=== PATIENT | male | born 1965 | race Caucasian/White ===

== ENCOUNTER 2016-09-26 19:45 | Observation (INO) | payer BC ==
[2016-09-26] MEDS ORDERED: SODIUM CHLORIDE 0.9% 500 ML IV STA (20:10)
[2016-09-26] MEDS ORDERED: SODIUM CHLORIDE 0.9% 1,000 ML IV STA (20:10)
[2016-09-26] MEDS ORDERED: IPRATROPIUM-ALBUTEROL 3 ML NEB INHALATION STA (20:11)
--- NOTE | 2016-09-26 20:14 | ED ---
General Adult HPI - General Source: patient Mode of arrival: wheelchair Limitations: no limitations <Arnie Sanchez - Last Filed: 09/26/16 20:18> <Castillo Palacios - Last Filed: 09/26/16 23:52> - General Chief complaint: Chest Pain Stated complaint: SOB/Chest tightness Time Seen by Provider: 09/26/16 20:10 - History of Present Illness Initial comments: This is a 51-year-old [id number] chest pain chest that is here patient has history of high blood pressure and asthma, patient coming in with chest pain, sent from urgent care for evaluation. Patient is exhibiting mainly chest tightness cough and congestion. Patient states he had no recent fever no sick contacts a no travel history, no modifying factors of pain (Arnie Sanchez ) - Related Data Home Medications Medication Instructions Recorded Confirmed Budesonide/Formoterol Fumarate 2 puff INHALATION RT-BID 11/19/14 09/26/16 [Symbicort 160-4.5 Mcg Inhaler] Lisinopril [Zestril] 10 mg PO DAILY 11/19/14 09/26/16 Omeprazole [PriLOSEC] 20 mg PO DAILY 11/19/14 09/26/16 Albuterol Nebulized [Ventolin 2.5 mg INHALATION RT-HS 05/05/16 09/26/16 Nebulized] Levothyroxine Sodium [Synthroid] 125 mcg PO DAILY 05/05/16 09/26/16 Cetirizine HCl [Zyrtec] 10 mg PO DAILY PRN 09/26/16 09/26/16 amLODIPine [Norvasc] 5 mg PO DAILY 09/26/16 09/26/16 guaiFENesin-DM 100-10MG/5ML 10 ml PO Q6H PRN 09/26/16 09/26/16 [Robitussin DM] Allergies Allergy/AdvReac Type Severity Reaction Status Date / Time No Known Allergies Allergy Verified 09/26/16 20:01 Review of Systems ROS Other: All systems not noted in ROS Statement are negative. <Arnie Sanchez - Last Filed: 09/26/16 20:18> ROS Other: All systems not noted in ROS Statement are negative. <Castillo Palacios - Last Filed: 01/29/17 23:52> ROS Statement: Those systems with pertinent positive or pertinent negative responses have been documented in the HPI. Past Medical History Past Medical History: Asthma, Hypertension Additional Past Medical History / Comment(s): HERNIA History of Any Multi-Drug Resistant Organisms: None Reported Past Surgical History: Hernia Repair Additional Past Surgical History / Comment(s): large intestine, secondary to juvenile polyposis Past Psychological History: No Psychological Hx Reported Smoking Status: Never smoker Past Alcohol Use History: None Reported Past Drug Use History: None Reported - Past Family History Mother Family Medical History: Cancer Sister(s) Additional Family Medical History / Comment(s): juvenile polyposis <Arnie Sanchez - Last Filed: 09/26/16 20:18> General Exam Limitations: no limitations General appearance: alert, in no apparent distress Head exam: Present: atraumatic, normocephalic, normal inspection Eye exam: Present: normal appearance, PERRL, EOMI. Absent: scleral icterus, conjunctival injection, periorbital swelling ENT exam: Present: normal exam, mucous membranes moist Neck exam: Present: normal inspection. Absent: tenderness, meningismus, lymphadenopathy Respiratory exam: Present: normal lung sounds bilaterally, respiratory distress , wheezes, decreased breath sounds. Absent: rales, rhonchi, stridor Cardiovascular Exam: Present: normal rhythm, tachycardia, normal heart sounds. Absent: systolic murmur, diastolic murmur, rubs, gallop, clicks GI/Abdominal exam: Present: soft, normal bowel sounds. Absent: distended, tenderness, guarding, rebound, rigid Extremities exam: Present: normal inspection, full ROM, normal capillary refill. Absent: tenderness, pedal edema, joint swelling, calf tenderness Back exam: Present: normal inspection Neurological exam: Present: alert, oriented X3, CN II-XII intact Psychiatric exam: Present: normal affect, normal mood Skin exam: Present: warm, dry, intact, normal color. Absent: rash <Arnie Sanchez Last Filed: 09/26/16 20:18> EKG Findings - EKG Comments: EKG Findings:: EKG shows sinus tachycardia rate of 109, OR 144, QRS 92, QTC 433 <Arnie Sanchez Last Filed: 09/26/16 20:18> Medical Decision Making <Arnie Sanchez - Last Filed: 09/26/16 20:18> - Lab Data Result diagrams: 09/26/16 20:30 09/26/16 20:30 - Radiology Data Radiology results: report reviewed, image reviewed (I did review the imaging and reports no acute findings are seen.) <Castillo Palacios - Last Filed: 09/26/16 23:52> - Medical Decision Making Patient will be admitted I did discuss findings with him and his family. He still has some intermittent episodes of some chest discomfort. (Castillo Palacios) - Lab Data Lab Results 09/26/16 09/26/16 09/26/16 Range/Units 20:30 20:30 20:30 WBC 5.7 (3.8-10.6) k/uL RBC 4.36 (4.30-5.90) m/uL Hgb 11.5 L (13.0-17.5) gm/dL Hct 37.6 L (39.0-53.0) % MCV 86.1 (80.0-100.0) fL MCH 26.4 (25.0-35.0) pg MCHC 30.7 L (31.0-37.0) g/dL RDW 19.1 H (11.5-15.5) % Plt Count 277 (150-450) k/uL Neutrophils % (Manual) 51.0 % Band Neutrophils % 5.0 % Lymphocytes % (Manual) 31.0 % Monocytes % (Manual) 12.0 % Eosinophils % (Manual) 1.0 % Neutrophils # (Manual) 3.2 (1.3-7.7) k/uL Lymphocytes # (Manual) 1.8 (1.0-4.8) k/uL Monocytes # (Manual) 0.7 (0-1.0) k/uL Eosinophils # (Manual) 0.1 (0-0.7) k/uL Nucleated RBCs 0 (0-0) /100 WBC Manual Slide Review Performed Hypochromasia Marked Poikilocytosis Slight Anisocytosis Slight Microcytosis Slight PT (9.0-12.0) sec INR (<1.1) APTT (22.0-30.0) sec D-Dimer (<0.60) mg/L FEU Sodium 138 (137-145) mmol/L Potassium 4.6 (3.5-5.1) mmol/L Chloride 103 (98-107) mmol/L Carbon Dioxide 23 (22-30) mmol/L Anion Gap 12 mmol/L BUN 14 (9-20) mg/dL Creatinine 1.00 (0.66-1.25) mg/dL Est GFR (MDRD) Af Amer >60 (>60 ml/min/1.73 sqM) Est GFR (MDRD) Non-Af >60 (>60 ml/min/1.73 sqM) Glucose 112 H (74-99) mg/dL Calcium 8.8 (8.4-10.2) mg/dL Magnesium 1.9 (1.6-2.3) mg/dL Total Bilirubin 0.3 (0.2-1.3) mg/dL AST 23 (17-59) U/L ALT 37 (21-72) U/L Alkaline Phosphatase 88 (38-126) U/L Total Creatine Kinase 47 L (55-170) U/L CK-MB (CK-2) <0.2 (0.0-2.4) ng/mL CK-MB (CK-2) Rel Index Troponin I <0.012 (0.000-0.034) ng/mL NT-Pro-B Natriuret Pep pg/mL Total Protein 7.2 (6.3-8.2) g/dL Albumin 4.0 (3.5-5.0) g/dL 09/26/16 09/26/16 Range/Units 20:30 20:30 WBC (3.8-10.6) k/uL RBC (4.30-5.90) m/uL Hgb (13.0-17.5) gm/dL Hct (39.0-53.0) % MCV (80.0-100.0) fL MCH (25.0-35.0) pg MCHC (31.0-37.0) g/dL RDW (11.5-15.5) % Plt Count (150-450) k/uL Neutrophils % (Manual) % Band Neutrophils % % Lymphocytes % (Manual) % Monocytes % (Manual) % Eosinophils % (Manual) % Neutrophils # (Manual) (1.3-7.7) k/uL Lymphocytes # (Manual) (1.0-4.8) k/uL Monocytes # (Manual) (0-1.0) k/uL Eosinophils # (Manual) (0-0.7) k/uL Nucleated RBCs (0-0) /100 WBC Manual Slide Review Hypochromasia Poikilocytosis Anisocytosis Microcytosis PT 10.1 (9.0-12.0) sec INR 1.0 (<1.1) APTT 27.1 (22.0-30.0) sec D-Dimer 0.41 (<0.60) mg/L FEU Sodium (137-145) mmol/L Potassium (3.5-5.1) mmol/L Chloride (98-107) mmol/L Carbon Dioxide (22-30) mmol/L Anion Gap mmol/L BUN (9-20) mg/dL Creatinine (0.66-1.25) mg/dL Est GFR (MDRD) Af Amer (>60 ml/min/1.73 sqM) Est GFR (MDRD) Non-Af (>60 ml/min/1.73 sqM) Glucose (74-99) mg/dL Calcium (8.4-10.2) mg/dL Magnesium (1.6-2.3) mg/dL Total Bilirubin (0.2-1.3) mg/dL AST (17-59) U/L ALT (21-72) U/L Alkaline Phosphatase (38-126) U/L Total Creatine Kinase (55-170) U/L CK-MB (CK-2) (0.0-2.4) ng/mL CK-MB (CK-2) Rel Index Troponin I (0.000-0.034) ng/mL NT-Pro-B Natriuret Pep 36 pg/mL Total Protein (6.3-8.2) g/dL Albumin (3.5-5.0) g/dL Disposition <Arnie Sanchez - Last Filed: 09/26/16 20:18> <Castillo Palacios - Last Filed: 09/26/16 23:52> Clinical Impression: Unstable angina pectoris, Chest pain Disposition: HOME SELF-CARE Condition: Stable
--- NOTE | 2016-09-26 21:04 | XR ---
EXAMINATION TYPE: XR chest 2V DATE OF EXAM: 09/26/2016 9:00 PM COMPARISON: 11/19/2014 HISTORY: Difficulty breathing TECHNIQUE: Frontal and lateral views of the chest are obtained. FINDINGS: There is a large hiatal hernia. Heart size is normal. There is no heart failure. Lungs are clear of consolidation. There is slight increased interstitial markings. Her chest leads. There is n o pleural effusion. IMPRESSION: Large hiatal hernia. Mild pulmonary fibrotic changes. No acute lung disease. No change.
[2016-09-26 21:07] LABS: ALT 37 U/L (21-72); AST 23 U/L (17-59); Alkaline Phosphatase 88 U/L (38-126); Anion Gap 12 mmol/L; Blood Urea Nitrogen 14 mg/dL (9-20); Calcium 8.8 mg/dL (8.4-10.2); Carbon Dioxide 23 mmol/L (22-30); Chloride 103 mmol/L (98-107); Glucose 112 mg/dL (74-99); Magnesium 1.9 mg/dL (1.6-2.3); Non-African American GFR(MDRD) >60 (>60 ml/min/1.73 sqM); Potassium 4.6 mmol/L (3.5-5.1); Sodium 138 mmol/L (137-145); Total Bilirubin 0.3 mg/dL (0.2-1.3); Total Protein 7.2 g/dL (6.3-8.2)
[2016-09-26 21:11] LABS: Creatine Kinase 47 U/L (55-170); Partial Thromboplastin Time 27.1 sec (22.0-30.0); Prothrombin Time 10.1 sec (9.0-12.0)
[2016-09-26 21:17] LABS: Anisocytosis Slight; Aty Lym Flag Slight; CH 26.8; HCT 37.6 % (39.0-53.0); HDW 3.65; HGB 11.5 gm/dL (13.0-17.5); Hypochromasia Marked; MCH 26.4 pg (25.0-35.0); MCHC 30.7 g/dL (31.0-37.0); MCV 86.1 fL (80.0-100.0); Mean Platelet Volume 7.6; Microcytosis Slight; Poikilocytosis Slight; RBC 4.36 m/uL (4.30-5.90); RDW 19.1 % (11.5-15.5); WBC 5.7 k/uL (3.8-10.6); WBC (Perox) 5.76
[2016-09-26 21:24] LABS: Creatine Kinase MB <0.2 ng/mL (0.0-2.4); Troponin I <0.012 ng/mL (0.000-0.034)
[2016-09-26 22:03] LABS: Add Differential Manual Differential
[2016-09-26 22:05] LABS: Nucleated Red Blood Cells 0 /100 WBC (0-0); Total Cells Counted 100
[2016-09-26 22:06] LABS: Manual Review Performed
[2016-09-26] MEDS ORDERED: HEPARIN SODIUM,PORCINE/D5W PMX 25,000 UNIT in DEXTROSE/WATER 1 500ML.BAG IV SCH (23:45)
[2016-09-26] MEDS ORDERED: HEPARIN SODIUM,PORCINE 5,000 UNIT/ML 1 ML VIAL IV ONE (23:52)
[2016-09-26] MEDS ORDERED: NITROGLYCERIN SL TABS 0.4 MG TAB SUBLINGUAL PRN (23:52)
[2016-09-26] MEDS ORDERED: LORATADINE 10 MG TAB PO PRN (23:54)
[2016-09-27 01:34] VITALS: BMI 38.6
[2016-09-27 03:01] LABS: Creatine Kinase 42 U/L (55-170)
[2016-09-27 03:14] LABS: Creatine Kinase MB <0.2 ng/mL (0.0-2.4); Troponin I <0.012 ng/mL (0.000-0.034)
[2016-09-27] MEDS: NITROGLYCERIN OINT 1 INCH/GM PACKET TOPICAL SCH ×3 (04:00→13:58)
[2016-09-27] MEDS ORDERED: LEVOTHYROXINE 125 MCG TAB PO SCH (06:30)
[2016-09-27] MEDS ORDERED: PANTOPRAZOLE 40 MG TABLET PO SCH (07:30)
[2016-09-27 07:52] VITALS: RESP 18
[2016-09-27] MEDS ORDERED: SYMBICORT 160-4.5 MCG INHALER INHALATION SCH (08:00)
[2016-09-27] MEDS ORDERED: LISINOPRIL 10 MG TAB PO SCH (09:00)
[2016-09-27] MEDS ORDERED: ASPIRIN 325 MG TAB PO SCH (09:00)
[2016-09-27] MEDS ORDERED: amLODIPine 5 MG TAB PO SCH (09:00)
[2016-09-27 10:01] LABS: Cholesterol 101 mg/dL (<200); HDL Cholesterol 35 mg/dL (40-60); Triglycerides 67 mg/dL (<150)
[2016-09-27 10:06] LABS: Creatine Kinase 41 U/L (55-170)
[2016-09-27 10:19] LABS: Creatine Kinase MB 0.3 ng/mL (0.0-2.4); Troponin I <0.012 ng/mL (0.000-0.034)
--- NOTE | 2016-09-27 10:28 | CONS ---
DATE OF CONSULTATION: Mart Walters is a 51-year-old male patient who presented to the hospital with tightness in the chest for the last day or two. He has low-grade fever. He is coughing. He is bringing up brownish phlegm and he feels a tightness in his whole chest. His 12-lead ECG upon admission showed sinus tachycardia. There was no ST segment abnormal abnormality. The follow-up 12 lead ECG also shows sinus rhythm, normal AL, normal ST segments but with lead reversal. His cardiac enzymes x2 are normal and we are waiting for the third one. Lipid panel has also been sent and is pending. He denies any dizziness, lightheadedness, palpitations. He does not history of asthma and he may have an asthma attack off and on. This does not feel like his asthma. He feels like he has got bronchitis. Past history of Juvenile polyposis with severe anemia in the past, history of colon surgery in [facility] 7 to 8 years back. Past history of hypertension. Past history of anemia in April 2016. ALLERGIES: No known drug allergies. MEDICATIONS: Home medications reviewed and include: 1. Amlodipine. 2. Lisinopril. 3. Naprosyn. 4. Ferrous Sulfate. 5. Synthroid. 6. Budesonide. 7. Inhalers. Family history of juvenile polyposis syndrome, father and sister. Mother had cancer. He has had a hernia repair in the past, he has a ventral hernia, history of microcytic hypochromic anemia. REVIEW OF SYSTEMS: He does have a low grade fever. No fever. No chills. No rigors. He does have cough and expectoration with brownish phlegm. No nausea, vomiting diarrhea. No hematuria or dysuria. No strokes or seizures. No skin lesions or musculoskeletal complaints. On examination, he is sitting comfortably in bed. His blood pressure is well controlled 130/68 and 113/67 millimeters of Hg. He is afebrile at 98.3, pulse rate is in the 80s. Head and neck examination is normal. Heart sounds S1, S2 are normal. Breath sounds are normal. No rhonchi. No crackles. EXTREMITIES: Warm. No edema. He does ( ) central obesity. His BMI is 38.7. IMPRESSION: 1. A 51-year-old male patient presenting with atypical chest discomfort that lasted more than 24 hours. He described it as a tightness in the chest. Two sets of cardiac enzymes are normal. Waiting for the third one. 2. Lipid panel unknown. 3. Hypertension on appropriate medical treatment and blood pressure is well controlled. 4. Obesity with a BMI of 38.7. 5. History of asthma. 6. History of juvenile polyposis syndrome, status post colectomy. 7. History of severe anemia several months back. At that time he was seen by Dr. Lynch and ( ). PLAN: If the third set of cardiac enzymes is normal he can go home. Continue antihypertensive therapy, lipid panel and follow up with me in about 3 weeks. There is no evidence for acute myocardial infarction or myocardial injury. He seems to have bronchitis at this time.
[2016-09-27 11:17] LABS: Hemoglobin A1C 5.3 % (4.2-6.1)
[2016-09-27 11:41] VITALS: BP 126/71; PULSE 97; TEMP 98.1
--- NOTE | 2016-09-27 16:52 | HP ---
DATE OF ADMISSION: 09/26/2016 HISTORY AND PHYSICAL AND DISCHARGE SUMMARY: Chief complaint is chest tightness and difficulty in breathing. HISTORY OF PRESENT ILLNESS: Mr. Walters is a 51-year-old male with a past medical history of asthma and hypertension coming to the hospital with a chief complaint of difficulty in breathing. Patient states that he was out in the cold weather five days back for a few hours as his truck stopped in the middle of the road so he was expose to some cold weather and since then started to have chest tightness and difficulty in breathing. He has some cough but it is nonproductive. It is dry, hacking cough. The patient reports of having subjective fevers. He has been taking his inhalers but with only some relief. As his symptoms did not improve he came into the hospital for further evaluation. REVIEW OF SYSTEMS: CONSTITUTIONAL: Denies having any chills or rigors. Positive for fever. CARDIAC: No chest pain or palpitations. GI: No abdominal pain, nausea, vomiting, or diarrhea. : No dysuria or hematuria. All 13 review of systems are done and negative except for the ones mentioned in the HPI. Past medical history significant for asthma and hypertension. ALLERGIES: No known drug allergies. Patient's home medications: 1. Symbicort 160/4.5 mcg 2 puffs b.i.d. 2. Lisinopril 10 mg p.o. daily. 3. Omeprazole 20 mg p.o. daily. 4. Albuterol inhalation p.r.n. for shortness of breath. 5. Levothyroxine 110 mcg p.o. daily. 6. ( ) 10 mg p.o. daily. 7. Amlodipine 5 mg p.o. daily. 8. Robitussin DM 10 mg q.6 hours p.r.n. for difficulty in breathing. PAST SURGICAL HISTORY: Positive for colon resection for juvenile polyposis, hernia repair. SOCIAL HISTORY: Never a smoker. No history of alcohol abuse or intravenous drug abuse. FAMILY HISTORY: Positive for juvenile polyposis in his sister and cancer in his mother. On examination, patient's vital signs temperature 98.1, heart rate 97, respiratory rate 18, blood pressure 126/71, saturating at 93% on room air. GENERAL EXAMINATION: The patient is obese and appears to be in no acute distress. HEAD: Atraumatic, normocephalic. EYES: Pupils round and reactive to light. NECK: No JVD. No thyromegaly. CARDIOVASCULAR: S1, S2 heard. No additional sounds. LUNGS: Bilateral breath sounds are positive. No wheeze or crackles. GI: Abdomen is soft. The patient has a huge ventral hernia. Bowel sounds are positive. EXTREMITIES: No edema. No cyanosis, no clubbing. GLASS BULB SILVERER: Alert, awake, oriented x3. No focal neurological deficits. SKIN: No rash. Patient's labs: White count 5.7, hemoglobin is 11.5, platelets of 277. Sodium 135, potassium 4.6, chloride 103, bicarb 23, BUN 14, creatinine 1.0. Troponin less than 0.012 x 3. The patient had a chest x-ray showing no acute cardiopulmonary process. ASSESSMENT AND PLAN: 1. Shortness of breath secondary to acute asthma exacerbation due to recent exposure to cold and also acute tracheobronchitis. 2. Hypertension. 3. Morbid obesity. 4. History of juvenile polyposis status post colectomy. PLAN: The patient did get serial EKGs and serial troponins that were within normal limits, seen by cardiology and cleared for discharged. Advised to follow up with them in 3 weeks. Patient's symptoms did get better. He will be discharged on Z-angela, refill his Inhalers as he ran out of them. The patient is being discharged home in stable condition. Follow-up: The patient is advised to follow up with his PCP in 2 to 3 days and cardiology, Dr. Gudino within 3 weeks. Activity as tolerated. DIET: Heart healthy diet. Patient's discharge medications: 1. Albuterol inhaler q.6 hours p.r.n. for shortness of breath. 2. Symbicort 160/4.5 mcg 2 puffs b.i.d. 3. Zithromax 250/500 mg on day one and 250 mg for 4 days. 4. Amlodipine 5 mg p.o. daily. 5. ( )10 mg p.o. daily. 6. Levothyroxine 125 mcg p.o. daily. 7. Omeprazole 20 mg p.o. daily. 8. Lisinopril 10 mg p.o. daily.
[2016-09-27] MEDS ORDERED: ALBUTEROL NEBULIZED 2.5 MG/3 ML INHALATION SCH (20:00)
== END 2016-09-27 14:52 | disposition home or self-care (01) ==
LOC: EC 19:45 → 3OBS 23:55
PROVIDERS: ADMIT Internal Medicine; ATTEND Internal Medicine
DX: R07.89 Other chest pain (principal); J45.901 Unspecified asthma with (acute) exacerbation; I10 Essential (primary) hypertension; E66.01 Morbid (severe) obesity due to excess calories; Z68.38 Body mass index [BMI] 38.0-38.9, adult; Z79.899 Other long term (current) drug therapy; Z90.49 Acquired absence of other specified parts of digestive tract; Z79.890 Hormone replacement therapy; Z79.51 Long term (current) use of inhaled steroids
CPT/HCPCS: 36415; 94640 ×2; 85379; 83880; 80061; 80053; 83036; 82550 ×2; 82553 ×2; 83735; 84484 ×2; 85025; 85610; 85730 ×2; 71020; 99285; 96361; 96376; G0378 ×2; J1644 ×2; 93005; 96365; 96366

== ENCOUNTER 2017-03-08 09:43 | Day surgery (SDC) | payer BC ==
[2017-03-04 12:56] VITALS: BMI 38.0
[~2017-03-08 09:43] MED LIST: LACTATED RINGERS 1,000 ML IV SCH
[2017-03-08 11:32] VITALS: TEMP 97.1
[2017-03-08] MEDS ORDERED: LIDOCAINE 1% 20 ML VIAL (10MG/ML) FOR IV START INTRADERMA ONE (11:50)
[2017-03-08] MEDS ORDERED: PROPOFOL 10 MG/ML 20 ML VIAL IV ONE (11:53)
[2017-03-08] MEDS ORDERED: ePHEDrine 50 MG/ML 1 ML AMP ONE (11:53)
[2017-03-08 12:40] VITALS: RESP 18
[2017-03-08 13:12] VITALS: BP 105/54; PULSE 88
--- NOTE | 2017-03-08 15:11 | P.PCN ---
Date of Procedure: 03/08/17 Preoperative Diagnosis: Postoperative Diagnosis: Procedure(s) Performed: Procedure: 1. Esophagogastroduodenoscopy and biopsy. 2. Colonoscopy and biopsy. 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 Postoperative diagnosis: 1. Paraesophageal hiatal hernia with no obvious esophagitis or complicated reflux disease including any evidence of Duarte's esophagus at this time. 2. 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 3. S/P colon resection with a diminutive polyp close to the anastomosis with the small bowel,biopsied, but no polyps noted in the remainder of the colon. 4. Low-grade internal hemorrhoids with no bleeding. Preparation: HalfLytely prep. Sedation: Was provided by anesthesia. Brief clinical history: The patient is a 51-year-old male who I have recently evaluated in the office and scheduled this exam because of history of Duarte's esophagus and history of familial polyposis. The patient has been advised in the past to have repeat yearly examination of his colon. Procedure: With the patient on his left lateral decubitus position and after informed consent and adequate sedation, I passed the Olympus-GIF 160 video upper endoscope through the cricopharyngeus down the esophagus. The GE junction was around 36 cm from the incisors and there was a moderately sized paraesophageal hiatal hernia. The esophagus did not show any obvious erosions, ulcers, strictures or Duarte's esophagus which he apparently had in the past. The endoscope was then passed into the stomach which was insufflated with air and inspected in detail including the retroflex view in the cardia. There was some mottling and erythema and there were multiple polyps in the gastric body and few smaller polyps in the gastric antrum consistent with regenerative polyps. There was no ulcers or bleeding. Pyloric channel, duodenal bulb, post bulbar area and descending duodenum was essentially within normal limits. I obtained biopsies from the duodenum, antrum, esophagus and the gastric body and antral polyps then the endoscope was withdrawn and I proceeded with the colonoscopy. Perianal area did not show any fissures or fistulas. There were no masses felt on digital rectal examination. The Olympus CFQ 160L video colonoscope was then inserted in the rectum in the usual fashion and advanced to the anastomotic site with the small bowel which is around 50 cm from the anal verge. The small bowel was examined to a good distance. There was a diminutive polyp close to the anastomosis which I biopsied, otherwise, the colon did not show any polyps or any significant abnormalities. I retroflexed the endoscope in the rectum before the endoscope was withdrawn. Low-grade internal hemorrhoids were noted with no evidence of bleeding at the time of this exam. The patient tolerated the procedure well. Plan: The patient was reassured. Will continue to survey as per protocol. He will follow up with you as planned. Implants: Indications for Procedure: Operative Findings: Description of Procedure:
== END 2017-03-08 13:45 | disposition home or self-care (01) ==
LOC: ORWHC2ENDO 09:43
DX: K29.50 Unspecified chronic gastritis without bleeding (principal); K31.7 Polyp of stomach and duodenum; K21.0 Gastro-esophageal reflux disease with esophagitis; K63.5 Polyp of colon; K44.9 Diaphragmatic hernia without obstruction or gangrene; K64.8 Other hemorrhoids; Z90.49 Acquired absence of other specified parts of digestive tract; Z86.010 Personal history of colon polyps; Z87.19 Personal history of other diseases of the digestive system; I10 Essential (primary) hypertension; E07.9 Disorder of thyroid, unspecified; Z79.899 Other long term (current) drug therapy
CPT/HCPCS: 88305; 88342; 45380; 43239; J2704

== ENCOUNTER → 2017-11-08 | Day surgery (SDC) | payer BC ==
[2017-11-07 08:42] VITALS: BMI 40.2
[~2017-11-08] MED LIST changes: -LACTATED RINGERS 1,000 ML IV SCH; +SIMETHICONE 40 MG/0.6 ML DROPS 2,000 MG/30 ML BOTTLE PO ONE
== END ==
LOC: ORWHC2ENDO 06:51
DX: K29.70 Gastritis, unspecified, without bleeding (principal)
CPT/HCPCS: 91110

== ENCOUNTER 2019-01-02 15:41 | Observation (INO) | payer BC ==
[2019-01-02] MEDS ORDERED: SODIUM CHLORIDE 0.9% 500 ML 500 ML IV STA (15:54)
[2019-01-02] MEDS ORDERED: IPRATROPIUM 0.5 MG/2.5 ML NEBU INHALATION STA (15:54)
[2019-01-02] MEDS ORDERED: ALBUTEROL NEBULIZED 2.5 MG/3 ML INHALATION STA (15:54)
[2019-01-02] MEDS ORDERED: diphenhydrAMINE 50 MG/ML 1 ML VIAL IVP STA (15:55)
[2019-01-02] MEDS ORDERED: DEXAMETHASONE SOD PHOSPHATE 10 MG/ML 1 ML VIAL IV STA (15:55)
[2019-01-02] MEDS ORDERED: FAMOTIDINE 20 MG/2 ML VIAL IV STA (15:55)
--- NOTE | 2019-01-02 16:03 | ED ---
General Adult HPI - General Chief complaint: Shortness of Breath Stated complaint: DOLORES Time Seen by Provider: 01/02/19 15:51 Source: patient, RN notes reviewed, old records reviewed Mode of arrival: ambulatory Limitations: no limitations - History of Present Illness Initial comments: 53 -year-old male history of asthma presents with dyspnea and suspected ALLERGIC reaction. Patient's dyspnea began approximately one hour prior to arrival. He began noticing urticarial rash on his arms and neck. He developed dyspnea and cough. He he states he had a normal lunch, no new foods. He has no exposures at work is working the same job for 30 years. Denies any new ALLERGIC exposures that are known to him. He denies tongue or lip swelling. Denies nausea. Denies abdominal pain. Denies chest pain. - Related Data Home Medications Medication Instructions Recorded Confirmed Lisinopril [Zestril] 10 mg PO QAM 11/19/14 01/02/19 Omeprazole [PriLOSEC] 20 mg PO DAILY 11/19/14 01/02/19 amLODIPine [Norvasc] 5 mg PO QAM 09/26/16 01/02/19 Albuterol Inhaler [Ventolin Hfa 2 puff INHALATION RT-QID PRN 01/02/19 01/02/19 Inhaler] Budesonide/Formoterol Fumarate 2 puff INHALATION RT-BID 01/02/19 01/02/19 [Symbicort 160-4.5 Mcg Inhaler] Levothyroxine Sodium [Synthroid] 150 mcg PO DAILY 01/02/19 01/02/19 Allergies Allergy/AdvReac Type Severity Reaction Status Date / Time No Known Allergies Allergy Verified 01/02/19 16:06 Review of Systems ROS Statement: Those systems with pertinent positive or pertinent negative responses have been documented in the HPI. ROS Other: All systems not noted in ROS Statement are negative. Past Medical History Past Medical History: Asthma, GERD/Reflux, Hypertension, Thyroid Disorder Additional Past Medical History / Comment(s): HERNIA UMBILICAL History of Any Multi-Drug Resistant Organisms: None Reported Past Surgical History: Hernia Repair Additional Past Surgical History / Comment(s): large intestine resection r/t polyps-secondary to juvenile polyposis Past Anesthesia/Blood Transfusion Reactions: No Reported Reaction Additional Past Anesthesia/Blood Transfusion Reaction / Comment(s): no problems with prior blood transfusion Past Psychological History: No Psychological Hx Reported Smoking Status: Never smoker Past Alcohol Use History: None Reported Past Drug Use History: None Reported - Past Family History Mother Family Medical History: Cancer Additional Family Medical History / Comment(s): breast CA Sister(s) Additional Family Medical History / Comment(s): juvenile polyposis General Exam Limitations: no limitations General appearance: alert, in no apparent distress Head exam: Present: atraumatic, normocephalic Eye exam: Present: normal appearance, PERRL ENT exam: Present: normal exam Neck exam: Present: normal inspection. Absent: tenderness, meningismus Respiratory exam: Present: respiratory distress, wheezes, decreased breath sounds Cardiovascular Exam: Present: normal rhythm, tachycardia GI/Abdominal exam: Present: soft, hernia (Anterior abdominal hernia, soft). Absent: distended, tenderness Neurological exam: Present: alert, oriented X3 Psychiatric exam: Present: normal affect, normal mood Skin exam: Present: warm, rash, erythema, urticaria (Diffuse urticarial rash bilateral arms, chest, neck, and back) Course Vital Signs 01/02/19 01/02/19 01/02/19 15:43 16:10 16:20 Temperature 97.7 F Pulse Rate 111 H 106 H Respiratory 24 24 Rate Blood Pressure 151/66 O2 Sat by Pulse 94 L Oximetry 01/02/19 01/02/19 16:34 17:23 Temperature Pulse Rate 104 H 94 Respiratory 18 Rate Blood Pressure 141/65 O2 Sat by Pulse 96 Oximetry Medical Decision Making - Medical Decision Making 53 -year-old male presented for evaluation of dyspnea and ALLERGIC reaction. Patient has history of asthma. Initial presentation he has diffuse urticarial rash, bilateral wheezing. Given albuterol, Atrovent, steroids And Benadryl in the Emergency Prompt. He Does Have Some Improvement in His Symptoms However He Has Persistent Mild Dyspnea and Wheezing. Will Be Placed in Observation for Continued Treatment of Asthma Exacerbation Secondary to ALLERGIC reaction. CAse is discussed with . - Lab Data Result diagrams: 01/02/19 16:20 01/02/19 16:20 Lab Results 01/02/19 01/02/19 Range/Units 16:20 16:20 WBC 9.1 (3.8-10.6) k/uL RBC 4.19 L (4.30-5.90) m/uL Hgb 11.3 L (13.0-17.5) gm/dL Hct 36.3 L (39.0-53.0) % MCV 86.7 (80.0-100.0) fL MCH 26.9 (25.0-35.0) pg MCHC 31.0 (31.0-37.0) g/dL RDW 16.9 H (11.5-15.5) % Plt Count 446 (150-450) k/uL Neutrophils % (Manual) 54 % Lymphocytes % (Manual) 38 % Monocytes % (Manual) 8 % Neutrophils # (Manual) 4.91 (1.3-7.7) k/uL Lymphocytes # (Manual) 3.46 (1.0-4.8) k/uL Monocytes # (Manual) 0.73 (0-1.0) k/uL Nucleated RBCs 0 (0-0) /100 WBC Manual Slide Review Performed Polychromasia Present Hypochromasia Marked Poikilocytosis Slight Anisocytosis Slight Sodium 138 (137-145) mmol/L Potassium 5.0 (3.5-5.1) mmol/L Chloride 108 H (98-107) mmol/L Carbon Dioxide 21 L (22-30) mmol/L Anion Gap 9 mmol/L BUN 15 (9-20) mg/dL Creatinine 0.96 (0.66-1.25) mg/dL Est GFR (CKD-EPI)AfAm >90 (>60 ml/min/1.73 sqM) Est GFR (CKD-EPI)NonAf >90 (>60 ml/min/1.73 sqM) Glucose 146 H (74-99) mg/dL Calcium 9.0 (8.4-10.2) mg/dL Total Bilirubin 0.5 (0.2-1.3) mg/dL AST 30 (17-59) U/L ALT 24 (21-72) U/L Alkaline Phosphatase 66 (38-126) U/L Total Protein 6.5 (6.3-8.2) g/dL Albumin 3.7 (3.5-5.0) g/dL Disposition Clinical Impression: Asthma with exacerbation, Allergic reaction Disposition: ADMITTED IP TO THIS [facility] Condition: Stable Is patient prescribed a controlled substance at d/c from ED?: No Referrals: Chelsea Cardoza MD [Primary Care Provider] - 1-2 days Decision to Admit Reason: Admit from EC Decision Date: 01/02/19 Decision Time: 18:08
[2019-01-02 16:48] LABS: ALT 24 U/L (21-72); AST 30 U/L (17-59); Albumin 3.7 g/dL (3.5-5.0); Alkaline Phosphatase 66 U/L (38-126); Anion Gap 9 mmol/L; Blood Urea Nitrogen 15 mg/dL (9-20); Carbon Dioxide 21 mmol/L (22-30); Chloride 108 mmol/L (98-107); Glucose 146 mg/dL (74-99); Sodium 138 mmol/L (137-145); Total Bilirubin 0.5 mg/dL (0.2-1.3); Total Protein 6.5 g/dL (6.3-8.2)
[2019-01-02 16:51] LABS: Anisocytosis Slight; HCT 36.3 % (39.0-53.0); HGB 11.3 gm/dL (13.0-17.5); Hypochromasia Marked; MCH 26.9 pg (25.0-35.0); MCV 86.7 fL (80.0-100.0); Platelet Count 446 k/uL (150-450); Poikilocytosis Slight; RBC 4.19 m/uL (4.30-5.90); RDW 16.9 % (11.5-15.5); WBC 9.1 k/uL (3.8-10.6)
[2019-01-02 17:25] LABS: Lymphocytes # (M) 3.46 k/uL (1.0-4.8); Monocytes # (M) 0.73 k/uL (0-1.0); Neutrophils # (M) 4.91 k/uL (1.3-7.7); Neutrophils % (M) 54 %; Nucleated Red Blood Cells 0 /100 WBC (0-0); Total Cells Counted 100
[2019-01-02 17:26] LABS: Polychromasia Present
[2019-01-02] MEDS ORDERED: IPRATROPIUM-ALBUTEROL 3 ML NEB INHALATION PRN (17:54)
[2019-01-02 19:52] VITALS: BMI 40.0
[2019-01-02] MEDS: IPRATROPIUM-ALBUTEROL 3 ML NEB INHALATION SCH (20:15)
[2019-01-02] MEDS: diphenhydrAMINE 25 MG CAP PO SCH (20:47)
[2019-01-02] MEDS: methylPREDNISolone SOD SUCCI 125 MG/2 ML VIAL IV SCH (22:26)
[2019-01-02] MEDS: PANTOPRAZOLE 40 MG/10 ML VIAL IVP SCH (22:26)
--- NOTE | 2019-01-02 23:28 | HP ---
HISTORY AND PHYSICAL DATE OF SERVICE: 01/02/2019. CHIEF COMPLAINT: Shortness of breath as well as rash. HISTORY OF PRESENT ILLNESS: This 53-year-old gentleman with a past medical history of multiple medical problems including asthma, GERD, hypertension, history of hypothyroidism, umbilical hernia, being followed by Dr. Cardoza in the outpatient setting, apparently was at work, the patient apparently ate a pizza around 12:30, at 1 o'clock the patient noted some rash in the hands which spread to the forearms. Subsequently patient developed welt-like reddish lesions. Patient came to [facility]. After steroids and Benadryl and other medication patient improved significantly. Patient was admitted for further evaluation and treatment. The patient also ate honey-glazed cashews earlier in the day, but there was no reaction to that. The patient apparently ate a slice of leftover [place] pizza. There is no history of fevers or rigors. No history of headache, loss of consciousness or seizures. PAST MEDICAL HISTORY: History of bronchial asthma, history of GERD, hypertension, hypothyroidism, history of umbilical hernia. MEDICATIONS: 1. Home medications are Norvasc 5 mg p.o. q.a.m. 2. Prilosec 20 mg. 3. Zestril 10 mg at bedtime. 4. Synthroid 150 mcg daily. 5. Symbicort 4.5 two puffs b.i.d. 6. Ventolin inhaler 2 puffs q.i.d. p.r.n. ALLERGIES: None. FAMILY HISTORY: History of breast cancer in the family. SOCIAL HISTORY: No smoking, no history of alcohol intake. REVIEW OF SYSTEMS: ENT: No diminished hearing or diminished vision. CARDIOVASCULAR: As mentioned earlier. GI: No nausea or vomiting. Patient complains of heartburn. : No dysuria no hematuria. NERVOUS SYSTEM: No numbness or weakness. ALLERGY: No asthma or hayfever. MUSCULOSKELETAL: As mentioned earlier. HEMATOLOGY/ONCOLOGY: No history of anemia. ENDOCRINE: No history of diabetes. CONSTITUTIONAL: Negative. DERMATOLOGY: Negative. PSYCH: As mentioned earlier. PHYSICAL EXAM: Alert, oriented x3. Pulse is 95. Blood pressure 152/75. Respirations 18. Temperature 98.6, pulse ox 94% on room air. HEENT: Conjunctivae normal. Oral mucosa moist. NECK: No jugular venous distention. No lymph node enlargement. CARDIOVASCULAR: S1 and S2 muffled. LUNGS: Breath sounds diminished in the bases. Few scattered rhonchi and crackles. Expiratory wheezing. ABDOMEN: Soft, obese, bowel sounds present. EXTREMITIES: Legs no edema. No swelling. NERVOUS SYSTEM: Higher functions as mentioned. Moves all 4 limbs. No focal motor or sensory deficits. LYMPHATICS: No lymph nodes palpable in the neck, axillae or groin. SKIN: No rashes. JOINTS: No active deformity. LAB: WBC 9.4, hemoglobin 7.3, sodium 130, potassium 5. ASSESSMENT: 1. Shortness of breath as well as allergic skin reaction. 2. Acute bronchial asthma acute exacerbation. 3. Anemia, normocytic. 4. History of bronchial asthma. 5. History of GERD. 6. Hypertension. 7. Hypothyroidism. 8. History umbilical hernia. 9. 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 10.Obesity with BMI of 40. RECOMMENDATIONS: This 53-year-old gentleman who presented with multiple complex medical problems, we will monitor the patient closely. Continue current management. Will initiate IV steroids and bronchodilators. Will resume the home medications. We will monitor the patient closely. Allergen challenge may be arranged while the patient is in the hospital. Otherwise, will also consult Pulmonary for further evaluation and treatment. Otherwise we will follow the patient closely. Also recommend the patient closely follow with Dr. Cardoza in the outpatient setting. MMTARASL / CATARINAN: [id number] /
[2019-01-03] MEDS: methylPREDNISolone SOD SUCCI 125 MG/2 ML VIAL IV SCH ×2 (05:39→11:32)
[2019-01-03] MEDS ORDERED: LEVOTHYROXINE 75 MCG TAB PO SCH (06:30)
[2019-01-03] MEDS: IPRATROPIUM-ALBUTEROL 3 ML NEB INHALATION SCH ×2 (07:07→10:41)
[2019-01-03 07:31] LABS: Glucose,Whole Blood 159 mg/dL (75-99)
[2019-01-03] MEDS: diphenhydrAMINE 25 MG CAP PO SCH (07:47)
[2019-01-03] MEDS: PANTOPRAZOLE 40 MG/10 ML VIAL IVP SCH (07:47)
[2019-01-03] MEDS: INSULIN ASPART (NovoLOG) 100 UNIT/ML VIAL SQ SCH ×2 (07:48→11:37)
[2019-01-03] MEDS ORDERED: SYMBICORT 160-4.5 MCG INHALER INHALATION SCH (08:00)
[2019-01-03] MEDS ORDERED: LISINOPRIL 10 MG TAB PO SCH (09:00)
[2019-01-03] MEDS ORDERED: FAMOTIDINE 20 MG/2 ML VIAL IV SCH (09:00)
[2019-01-03] MEDS ORDERED: NON-FORMULARY DRUG (Omeprazole [Prilosec] 20 MG) PO SCH (09:00)
[2019-01-03] MEDS ORDERED: amLODIPine 5 MG TAB PO SCH (09:00)
[2019-01-03 11:16] LABS: Anisocytosis Slight; Basophils % (A) 0 %; Eosinophils % (A) 0 %; HCT 32.9 % (39.0-53.0); Hypochromasia Marked; Lymphocytes # (A) 0.6 k/uL (1.0-4.8); Lymphocytes % (A) 4 %; MCH 26.9 pg (25.0-35.0); MCHC 30.4 g/dL (31.0-37.0); MCV 88.6 fL (80.0-100.0); Mean Platelet Volume 7.7; Monocytes # (A) 0.2 k/uL (0-1.0); Monocytes % (A) 1 %; Neutrophils # (A) 15.1 k/uL (1.3-7.7); Neutrophils % (A) 95 %; Platelet Count 362 k/uL (150-450); Poikilocytosis Slight; RBC 3.72 m/uL (4.30-5.90); RDW 17.1 % (11.5-15.5)
[2019-01-03 11:24] LABS: Glucose,Whole Blood 288 mg/dL (75-99)
[2019-01-03 11:47] LABS: Calcium 8.8 mg/dL (8.4-10.2); Potassium 4.9 mmol/L (3.5-5.1)
[2019-01-03 13:44] VITALS: BP 115/52; PULSE 109; RESP 16; TEMP 98.4
--- NOTE | 2019-01-03 14:51 | P.CNPUL ---
History of Present Illness Consult date: 01/03/19 Requesting physician: Jayde Edwards Reason for consult: dyspnea Chief complaint: Rash, shortness of breath History of present illness: This is a very pleasant 53-year-old gentleman who follows with Dr. Cardoza as his primary care physician. He has a history of hypertension, hypothyroidism, chronic bronchial asthma, gastroesophageal reflux disease. He uses albuterol inhaler about once a week. Lifelong nonsmoker. He presented here to the emergency room yesterday after developing but started on his hands a fine rash and itching moved up his forearms and then recovered his trunk. He was having some issues with shortness of breath as well. No swelling of the tongue or lips. No difficulty swallowing. He had eaten pizza for lunch which she's had before. He's had Honey nut cashews which she had had before. No new foods that he is aware of. No new laundry discharge in at home. He is unclear about the work uniform. He is seen today in consultation on the regular medical floor. Awake and alert in no acute distress. He is doing much better. His rash has resolved. No itching. No shortness of breath cough or congestion. He is maintaining O2 saturations in the 90s on room air. He's afebrile. Initial white count was 9.1. Currently 16.0. Hemoglobin 10.0. Neutrophils 15. Creatinine 1.09. He had been on Symbicort, DuoNeb's, IV Solu-Medrol. He had received Pepcid, Benadryl, Decadron in the emergency room. Review of Systems REVIEW OF SYSTEMS: CONSTITUTIONAL: Denies any recent significant weight loss or weight gain. EYES: Denies change in vision. EARS, NOSE, MOUTH, THROAT: Denies headaches, denies sore throat. CARDIOVASCULAR: Denies chest pain, palpitations or syncopal episodes. RESPIRATORY: Positive for shortness of breath, no cough, congestion or hemoptysis. GASTROINTESTINAL: Denies change in appetite, denies abdominal pain GENITOURINARY: Denies hematuria, denies infections. MUSKULOSKELETAL: Denies pain, denies swelling. INTEGUMENTARY: Positive for hives, rash, urticaria. NEUROLOGICAL: Denies recent memory loss, no recent seizure activity. PSYCHIATRIC: Denies anxiety, denies depression. HEMATOLOGIC/LYMPHATIC: Denies anemia, denies enlarged lymph nodes. Past Medical History Past Medical History: Asthma, GERD/Reflux, Hypertension, Thyroid Disorder Additional Past Medical History / Comment(s): HERNIA UMBILICAL History of Any Multi-Drug Resistant Organisms: None Reported Past Surgical History: Hernia Repair Additional Past Surgical History / Comment(s): large intestine resection r/t polyps-secondary to juvenile polyposis Past Anesthesia/Blood Transfusion Reactions: No Reported Reaction Additional Past Anesthesia/Blood Transfusion Reaction / Comment(s): no problems with prior blood transfusion Past Psychological History: No Psychological Hx Reported Smoking Status: Never smoker Past Alcohol Use History: None Reported Past Drug Use History: None Reported - Past Family History Mother Family Medical History: Cancer Additional Family Medical History / Comment(s): breast CA Sister(s) Additional Family Medical History / Comment(s): juvenile polyposis Medications and Allergies Home Medications Medication Instructions Recorded Confirmed Type Lisinopril [Zestril] 10 mg PO QAM 11/19/14 01/02/19 History Omeprazole [PriLOSEC] 20 mg PO DAILY 11/19/14 01/02/19 History amLODIPine [Norvasc] 5 mg PO QAM 09/26/16 01/02/19 History Albuterol Inhaler [Ventolin Hfa 2 puff INHALATION RT-QID PRN 01/02/19 01/02/19 History Inhaler] Budesonide/Formoterol Fumarate 2 puff INHALATION RT-BID 01/02/19 01/02/19 History [Symbicort 160-4.5 Mcg Inhaler] Levothyroxine Sodium [Synthroid] 150 mcg PO DAILY 01/02/19 01/02/19 History diphenhydrAMINE [Benadryl] 25 mg PO TID PRN #20 cap 01/03/19 Rx predniSONE 10 mg PO DIRECTED #30 tab 01/03/19 Rx Allergies Allergy/AdvReac Type Severity Reaction Status Date / Time No Known Allergies Allergy Verified 01/02/19 16:06 Physical Exam Vitals: Vital Signs Temp Pulse Pulse Resp BP BP Pulse Ox 01/03/19 13:14 98.4 F 109 H 16 115/52 92 L 01/03/19 10:53 86 01/03/19 10:41 84 01/03/19 08:00 18 01/03/19 07:21 88 01/03/19 07:07 86 93 L 01/03/19 05:48 98.3 F 86 18 152/61 96 01/02/19 21:12 98.6 F 95 18 152/75 94 L 01/02/19 20:24 90 01/02/19 20:16 89 01/02/19 19:13 98.4 F 85 18 125/55 97 01/02/19 18:51 98.4 F 85 18 125/55 97 01/02/19 18:44 98.4 F 85 18 125/55 97 01/02/19 17:23 94 18 141/65 96 01/02/19 16:34 104 H 01/02/19 16:20 106 H 01/02/19 16:10 24 01/02/19 15:43 97.7 F 111 H 24 151/66 94 L Intake and Output 01/02/19 01/03/19 01/03/19 22:59 06:59 14:59 Intake Total 500 540 Balance 500 540 Intake: Amount of Fluid Infused ( 500 ml) Oral 540 Other: Voiding Method Toilet # Voids 1 1 2 # Bowel Movements 1 Weight 133.81 kg GENERAL EXAM: Alert, active, comfortable in no apparent distress. On room air. HEAD: Normocephalic. EYES: Normal reaction of pupils, equal size. NOSE: Clear with pink turbinates. THROAT: No erythema or exudates. NECK: No masses, no JVD. CHEST: No chest wall deformity. LUNGS: Equal air entry with no crackles, wheeze, rhonchi or dullness. CVS: S1 and S2 normal with no audible murmur, regular rhythm. ABDOMEN: No hepatosplenomegaly, normal bowel sounds, no guarding or rigidity. SPINE: No scoliosis or deformity SKIN: No rashes CENTRAL NERVOUS SYSTEM: No focal deficits, tone is normal in all 4 extremities. EXTREMITIES: There is no peripheral edema. No clubbing, no cyanosis. Peripheral pulses are intact. Results - Laboratory Findings CBC and BMP: 01/03/19 10:18 01/03/19 10:18 Abnormal lab findings: Abnormal Labs 01/02/19 01/02/19 01/03/19 16:20 16:20 07:29 WBC RBC 4.19 L Hgb 11.3 L Hct 36.3 L MCHC RDW 16.9 H Neutrophils # Lymphocytes # Sodium Chloride 108 H Carbon Dioxide 21 L Glucose 146 H POC Glucose (mg/dL) 159 H 01/03/19 01/03/19 01/03/19 10:18 10:18 11:20 WBC 16.0 H RBC 3.72 L Hgb 10.0 L Hct 32.9 L MCHC 30.4 L RDW 17.1 H Neutrophils # 15.1 H Lymphocytes # 0.6 L Sodium 136 L Chloride Carbon Dioxide 21 L Glucose 259 H POC Glucose (mg/dL) 288 H Assessment and Plan Assessment: Impression: #1 Acute ALLERGIC reaction including shortness of breath, urticaria, hives from unclear etiology. Resolved. #2 Mild intermittent chronic bronchial asthma, suspect mild exacerbation secondary to #1. #3 Hypertension. #4 Hypothyroidism. #5 Gastroesophageal reflux disease. Plan: The patient was seen and evaluated by Dr. Kimbrough. The patient's symptoms have completely resolved. He is cleared for discharge from the pulmonary standpoint. Continue Medrol Dosepak. Benadryl as needed. Follow-up with his PCP. I, the cosigning physician, performed a history & physical examination of the patient. Lungs sounds are clear. Maintaining good O2 saturations in the 90s on room air. I discussed the assessment and plan of care with my nurse practitioner, Maribel Sanchez. I attest to the above note as dictated by her. Time with Patient: Greater than 30
--- NOTE | 2019-01-03 20:16 | DS ---
DISCHARGE SUMMARY DATE OF SERVICE: 01/03/2019. FINAL DIAGNOSES: 1. Shortness of breath, possibly acute bronchial asthma, acute exacerbation. 2. Allergic skin reaction. 3. Anemia, normocytic. 4. History of bronchial asthma. 5. History of gastroesophageal reflux disease. 6. Hypertension. 7. Hypothyroidism. 8. History of umbilical hernia. 9. 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 10.Obesity with body mass index of 40. DISCHARGE DISPOSITION: The patient is being discharged in stable condition with guarded prognosis. HISTORY OF PRESENT ILLNESS: This 53-year-old gentleman with a past medical history of multiple medical problems as mentioned earlier, being followed by Dr. Cardoza in the outpatient setting was admitted with significant rash, shortness of breath and acute bronchial asthma, acute exacerbation after eating unspecified food. The patient apparently ate some pizza for lunch. The patient was treated with bronchodilators, steroids. The patient improved significantly and the rash disappeared. On exam, vitals are stable. Cardiovascular: S1, S2. Respirations: A few scattered rhonchi. Abdomen is soft. Central nervous system: No focal deficits. DISCHARGE ADVICE AND MEDICATIONS: 1. Discharge diet is cardiac. 2. Activity limited until follow up. 3. Follow up with Dr. Cardoza in 2-3 days. DISCHARGE MEDICATIONS: 1. Norvasc 5 mg q.a.m. 2. Prilosec 20 mg daily. 3. Symbicort 160/4.5 two puffs b.i.d. 4. Synthroid 150 mcg p.o. daily. 5. Albuterol 2 puffs q.i.d. p.r.n. 6. Zestril 10 mg q.a.m. 7. Benadryl p.r.n. 8. Prednisone taper 40 mg daily for 3 days, 30 for 3 days, 20 for 3 days, 10 for 3 days. Once again, the patient is being discharged in stable condition with guarded prognosis. MMODL / IJN: [id number] /
== END 2019-01-03 14:47 | disposition home or self-care (01) ==
LOC: EC 15:41 → 4MS4W 17:54
PROVIDERS: ADMIT Hospitalist; ATTEND Hospitalist
DX: R06.02 Shortness of breath (principal); L50.0 Allergic urticaria; T78.1XXA Other adverse food reactions, not elsewhere classified, initial encounter; J45.20 Mild intermittent asthma, uncomplicated; I10 Essential (primary) hypertension; E03.9 Hypothyroidism, unspecified; K21.9 Gastro-esophageal reflux disease without esophagitis; D64.9 Anemia, unspecified; E66.9 Obesity, unspecified; Z68.41 Body mass index [BMI] 40.0-44.9, adult; K42.9 Umbilical hernia without obstruction or gangrene; Z79.51 Long term (current) use of inhaled steroids; Z79.890 Hormone replacement therapy; Z79.899 Other long term (current) drug therapy; Z83.71 Family history of colonic polyps; Z90.49 Acquired absence of other specified parts of digestive tract; Z86.010 Personal history of colon polyps; Z87.19 Personal history of other diseases of the digestive system; Z80.3 Family history of malignant neoplasm of breast
CPT/HCPCS: 96376; 96361 ×3; 96375 ×2; 96374; 99285; 36415; 94640 ×4; 94760; 80053; 80048; 85025 ×2; G0378 ×2; J1200; J1100; J2930 ×2; C9113 ×2

== ENCOUNTER 2019-06-21 10:14 | Day surgery (SDC) | payer BC ==
[2019-06-19 16:57] VITALS: BMI 44.0
[2019-06-21] MEDS ORDERED: LIDOCAINE 1% 20 ML VIAL (10MG/ML) FOR IV START INTRADERMA PRN (10:29)
[2019-06-21] MEDS ORDERED: LACTATED RINGERS 1,000 ML IV SCH (10:29)
[2019-06-21 10:35] VITALS: RESP 20; TEMP 98.8
[2019-06-21] MEDS ORDERED: PROPOFOL 10 MG/ML 20 ML VIAL IV ONE (11:29)
[2019-06-21] MEDS ORDERED: KETAMINE 10 MG/ML 20 ML VIAL ONE (11:29)
[2019-06-21] MEDS ORDERED: fentaNYL (PF) 50 MCG/ML 2 ML AMP ONE (11:29)
[2019-06-21] MEDS ORDERED: LIDOCAINE 1% INJ 10MG/ML (20 ML MDV) ONE (11:29)
[2019-06-21] MEDS ORDERED: PHENYLEPHRINE-0.9% NACL SYG 1 MG/10 ML SYRINGE ONE (11:29)
[2019-06-21] MEDS ORDERED: MIDAZOLAM 2 MG/2 ML VIAL ONE (11:29)
--- NOTE | 2019-06-21 12:52 | P.PCN ---
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 Patient previously had biopsies consistent with Duarte's esophagus with no evidence of Duarte's on EGD in 2017. He also has a history of juvenile familial adenomatous polyposis for which she underwent a subtotal colectomy in 1999 [place],. Procedure performed: Esophagogastroduodenoscopy with biopsy Colonoscopy with polypectomy Estimated blood loss: Minimal. Preoperative diagnosis: History of Duarte's esophagus, benign neoplasm of the colon, last colonoscopy 2 years ago Anesthesia: [facility] [place] Procedure: After informed consent was obtained from the patient was brought into the endoscopy unit and IV sedation was administered by anesthesia under continuous monitoring. Initially upper endoscopy was done. The Olympus GF 190 video endoscope was inserted inserted into the mouth and esophagus intubated without any difficulty and was gradually advanced into the stomach and duodenum and carefully examined. The bulb and second part of the duodenum appeared normal, with biopsies taken. The scope was then withdrawn into the stomach adequately insufflated with air and upon careful examination the antrum and body, cardia and fundus appeared were significant for innumerable small and large polyps, predominantly in the fundus of the stomach with biopsies of the larger polyp was taken. The scope was then withdrawn into the esophagus. The GE junction was located at 36 cm to the incisors with a 5 cm hiatal hernia noted, and biopsies t aken of the GE junction/distal esophagitis in the setting of prior history of Duarte's esophagus. It appeared regular with no erythema erosions or ulcerations. Rest of the esophagus appeared normal. Patient tolerated the procedure well. At this time the patient continued to remain sedation. Initial digital rectal examination was normal. Olympus CF 190 video colonoscope was then inserted into the rectum and gradually advanced to the ileal colonic anastomosis approximately 50 cm from the anal verge. Resection of 6 polyps ranging in size from 4 mm to 11 mm with cold snare polypectomy and 3 diminutive polyps measuring 2 mm were taken from the colon. The ileum was also intubated and appeared grossly normal with some hypertrophic tissue biopsied. Careful examination was performed as th e scope was gradually being withdrawn. The prep was excellent. Retroflexion was performed in the rectum and no lesions were noted. Patient tolerated the procedure well. Impression: 1. Innumerable gastric polyps, random biopsies taken of the larger polyps. Duodenal biopsies. GE/distal esophagus given history of Duarte's esophagus. Large hiatal hernia. 2. Polypectomy of 9 polyps, screening with cold forcep polypectomy and the remaining 6 with cold snare polypectomy. Intact ileal colonic anastomotic site. Hypertrophied small bowel tissue/polyps biopsied. Recommendations: Findings of this examination were discussed with the patient as well as his . Await pathology from polypectomy and biopsies. Would recommend patient follow up with [facility] with repeat EGD and surveillance given the numerous polyps seen on upper endoscopy. Follow-up in gastroenterology clinic as previously scheduled.
[2019-06-21 12:56] VITALS: BP 123/73; PULSE 75
== END 2019-06-21 13:19 | disposition home or self-care (01) ==
LOC: ORWHC2ENDO 10:14
PROVIDERS: ATTEND Internal Medicine
DX: K31.7 Polyp of stomach and duodenum (principal); D12.0 Benign neoplasm of cecum; K44.9 Diaphragmatic hernia without obstruction or gangrene; K22.70 Barrett's esophagus without dysplasia; Z86.010 Personal history of colon polyps; I10 Essential (primary) hypertension; J45.909 Unspecified asthma, uncomplicated; E07.9 Disorder of thyroid, unspecified; K21.9 Gastro-esophageal reflux disease without esophagitis; Z79.890 Hormone replacement therapy; Z79.899 Other long term (current) drug therapy; Z79.51 Long term (current) use of inhaled steroids
CPT/HCPCS: 88305; 45380; 45385; 43239; J2250; J2001; J3010; J2370; J2704

== ENCOUNTER 2021-11-27 14:49 | Inpatient (IN) | payer BC ==
--- NOTE | 2021-11-27 15:37 | ED ---
General Adult HPI - General Chief complaint: Recheck/Abnormal Lab/Rx Stated complaint: Need blood,came from 2nd floor Time Seen by Provider: 11/27/21 15:13 Source: patient, family Mode of arrival: wheelchair Limitations: no limitations - History of Present Illness Initial comments: Dictation was produced using LUMOback dictation software. please excuse any grammatical, word or spelling errors. Chief Complaint: 56-year-old male presents to the emergency department for anemia History of Present Illness: 56-year-old male he had a blood draw performed a car monos. He was not feeling well for the last couple days. He is accompanied with his . checked his blood pressure earlier today systolics was in the 90s. Over the last 2 or 3 days she's been feeling weak and fatigued. He has a history of anemia and sees Dr. Keller the audit spec regarding this. He saw Dr. Keller today who sent patient in for a blood draw. He was told that he had a hemoglobin of 6.6 To the emergency department. Patient states he feels weak. Denies any pain. Denies any dark stools. 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 reports he is mildly pale. Denies any constitutional symptoms The ROS documented in this emergency department record has been reviewed and confirmed by me. Those systems with pertinent positive or negative responses have been documented in the HPI. All other systems are other negative and/or noncontributory. PHYSICAL EXAM: General Impression: Alert and oriented x3, not in acute distress, pale HEENT: Normocephalic atraumatic, extra-ocular movements intact, pupils equal and reactive to light bilaterally, mucous membranes moist. Cardiovascular: Heart regular rate and rhythm Chest: Able to complete full sentences, no retractions, no tachypnea Abdomen: abdomen soft, non-tender, non-distended, no organomegaly Musculoskeletal: Pulses present and equal in all extremities, no peripheral edema Motor: no focal deficits noted Neurological: CN II-XII grossly intact, no focal motor or sensory deficits noted Skin: Intact with no visualized rashes Psych: Normal affect and mood Rectal exam: No gross blood on EMIR ED course: 56-year-old male presents emergency department for weakness fatigue and low hemoglobin. His blood drawn at [facility]. Signs upon arrival are within acceptable limits. EKG shows new onset atrial flutter. Spoke with service learning coordinator at approximately 5:[address] Pollard who recommends not starting any anticoagulation medications at this time. EKG interpretation: Ventricular rate 94, atrial flutter, QS 125, QTc 412. No no QTC prolongation, no ST or T-wave changes noted. Compared to EKG from which at that time was normal sinus rhythm. Patient is not reporting any history of atrial flutter or atrial fibrillation. He is on anticoagulation medications. EKG concerning for new onset atrial flutter Laboratory evaluation obtained. Hemoglobin 6.9. Mild leukocytosis 12.1. Coag panel is negative. Metabolic panel is within acceptable limits. Troponin is negative. Stool occult blood is negative. Patient reevaluated at bedside at 6:05 PM on abuse stable medical condition. Patient transfuse 1 unit of blood. Patient admitted with consultation to cardiology for inpatient workup of new onset atrial flutter. - Related Data Home Medications Medication Instructions Recorded Confirmed Omeprazole [PriLOSEC] 20 mg PO BID 11/19/14 11/27/21 lisinopriL [Zestril] 10 mg PO DAILY 11/19/14 11/27/21 amLODIPine [Norvasc] 5 mg PO DAILY 09/26/16 11/27/21 Budesonide/Formoterol Fumarate 2 puff INHALATION RT-BID 01/02/19 11/27/21 [Symbicort 160-4.5 Mcg Inhaler] Levothyroxine Sodium [Synthroid] 250 mcg PO DAILY 01/02/19 11/27/21 Albuterol Inhaler [Ventolin Hfa 2 puff INHALATION RT-QID PRN 11/27/21 11/27/21 Inhaler] Albuterol Nebulized [Ventolin 2.5 mg INHALATION RT-QID PRN 11/27/21 11/27/21 Nebulized] Cetirizine HCl 10 mg PO DAILY 11/27/21 11/27/21 Cyclobenzaprine [Flexeril] 10 mg PO DAILY PRN 11/27/21 11/27/21 Allergies Allergy/AdvReac Type Severity Reaction Status Date / Time No Known Allergies Allergy Verified 11/27/21 16:35 Review of Systems ROS Statement: Those systems with pertinent positive or pertinent negative responses have been documented in the HPI. ROS Other: All systems not noted in ROS Statement are negative. Past Medical History Past Medical History: Asthma, GERD/Reflux, Hypertension, Thyroid Disorder Additional Past Medical History / Comment(s): HERNIA UMBILICAL, hx. juvenile polyposis History of Any Multi-Drug Resistant Organisms: None Reported Past Surgical History: Bowel Resection, Hernia Repair Additional Past Surgical History / Comment(s): large intestine resection r/t polyps-secondary to juvenile polyposis, colonoscopy Past Anesthesia/Blood Transfusion Reactions: No Reported Reaction Additional Past Anesthesia/Blood Transfusion Reaction / Comment(s): no problems with prior blood transfusion Past Psychological History: No Psychological Hx Reported Smoking Status: Never smoker Past Alcohol Use History: None Reported Past Drug Use History: None Reported - Past Family History Mother Family Medical History: Cancer Additional Family Medical History / Comment(s): breast CA Sister(s) Additional Family Medical History / Comment(s): juvenile polyposis General Exam Limitations: no limitations Course Vital Signs 11/27/21 11/27/21 11/27/21 15:06 15:27 16:11 Temperature 98.8 F Pulse Rate 85 104 H 88 Respiratory 18 20 20 Rate Blood Pressure 149/80 129/60 O2 Sat by Pulse 98 90 L Oximetry 11/27/21 11/27/21 11/27/21 17:50 17:59 18:00 Temperature 99.6 F 99.9 F H 100 F H Pulse Rate 105 H 107 H 104 H Respiratory 18 18 18 Rate Blood Pressure 132/67 123/61 108/69 O2 Sat by Pulse 95 96 96 Oximetry Medical Decision Making - Lab Data Result diagrams: 11/27/21 15:42 11/27/21 15:42 Lab Results 11/27/21 11/27/21 11/27/21 Range/Units 15:42 15:42 15:42 WBC 12.1 H (3.8-10.6) k/uL RBC 3.40 L (4.30-5.90) m/uL Hgb 6.9 L* (13.0-17.5) gm/dL Hct 24.8 L (39.0-53.0) % MCV 73.1 L (80.0-100.0) fL MCH 20.2 L (25.0-35.0) pg MCHC 27.7 L (31.0-37.0) g/dL RDW 20.9 H (11.5-15.5) % Plt Count 371 (150-450) k/uL MPV 9.0 Neutrophils % 89 % Lymphocytes % 5 % Monocytes % 4 % Eosinophils % 0 % Basophils % 0 % Neutrophils # 10.7 H (1.3-7.7) k/uL Lymphocytes # 0.6 L (1.0-4.8) k/uL Monocytes # 0.5 (0-1.0) k/uL Eosinophils # 0.0 (0-0.7) k/uL Basophils # 0.0 (0-0.2) k/uL Hypochromasia Marked Poikilocytosis Moderate Anisocytosis Moderate Microcytosis Marked PT 10.5 (9.0-12.0) sec INR 1.0 (<1.2) APTT 24.3 (22.0-30.0) sec Sodium (137-145) mmol/L Potassium (3.5-5.1) mmol/L Chloride (98-107) mmol/L Carbon Dioxide (22-30) mmol/L Anion Gap mmol/L BUN (9-20) mg/dL Creatinine (0.66-1.25) mg/dL Est GFR (CKD-EPI)AfAm (>60 ml/min/1.73 sqM) Est GFR (CKD-EPI)NonAf (>60 ml/min/1.73 sqM) Glucose (74-99) mg/dL Plasma Lactic Acid Olaf (0.7-2.0) mmol/L Calcium (8.4-10.2) mg/dL Magnesium (1.6-2.3) mg/dL Troponin I (0.000-0.034) ng/mL Stool Occult Blood (Negative) Blood Type A Positive Blood Type Recheck A Pos Bld Type Recheck Status No Antibody Screen NEGATIVE Crossmatch See Detail Spec Expiration Date 11/30/2021 - 234111/27/21 11/27/21 11/27/21 Range/Units 15:42 15:42 15:42 WBC (3.8-10.6) k/uL RBC (4.30-5.90) m/uL Hgb (13.0-17.5) gm/dL Hct (39.0-53.0) % MCV (80.0-100.0) fL MCH (25.0-35.0) pg MCHC (31.0-37.0) g/dL RDW (11.5-15.5) % Plt Count (150-450) k/uL MPV Neutrophils % % Lymphocytes % % Monocytes % % Eosinophils % % Basophils % % Neutrophils # (1.3-7.7) k/uL Lymphocytes # (1.0-4.8) k/uL Monocytes # (0-1.0) k/uL Eosinophils # (0-0.7) k/uL Basophils # (0-0.2) k/uL Hypochromasia Poikilocytosis Anisocytosis Microcytosis PT (9.0-12.0) sec INR (<1.2) APTT (22.0-30.0) sec Sodium 136 L (137-145) mmol/L Potassium 4.8 (3.5-5.1) mmol/L Chloride 106 (98-107) mmol/L Carbon Dioxide 22 (22-30) mmol/L Anion Gap 8 mmol/L BUN 15 (9-20) mg/dL Creatinine 1.18 (0.66-1.25) mg/dL Est GFR (CKD-EPI)AfAm 80 (>60 ml/min/1.73 sqM) Est GFR (CKD-EPI)NonAf 69 (>60 ml/min/1.73 sqM) Glucose 119 H (74-99) mg/dL Plasma Lactic Acid Olaf 1.4 (0.7-2.0) mmol/L Calcium 8.5 (8.4-10.2) mg/dL Magnesium 2.0 (1.6-2.3) mg/dL Troponin I (0.000-0.034) ng/mL Stool Occult Blood Negative (Negative) Blood Type Blood Type Recheck Bld Type Recheck Status Antibody Screen Crossmatch Spec Expiration Date 11/27/21 Range/Units 15:42 WBC (3.8-10.6) k/uL RBC (4.30-5.90) m/uL Hgb (13.0-17.5) gm/dL Hct (39.0-53.0) % MCV (80.0-100.0) fL MCH (25.0-35.0) pg MCHC (31.0-37.0) g/dL RDW (11.5-15.5) % Plt Count (150-450) k/uL MPV Neutrophils % % Lymphocytes % % Monocytes % % Eosinophils % % Basophils % % Neutrophils # (1.3-7.7) k/uL Lymphocytes # (1.0-4.8) k/uL Monocytes # (0-1.0) k/uL Eosinophils # (0-0.7) k/uL Basophils # (0-0.2) k/uL Hypochromasia Poikilocytosis Anisocytosis Microcytosis PT (9.0-12.0) sec INR (<1.2) APTT (22.0-30.0) sec Sodium (137-145) mmol/L Potassium (3.5-5.1) mmol/L Chloride (98-107) mmol/L Carbon Dioxide (22-30) mmol/L Anion Gap mmol/L BUN (9-20) mg/dL Creatinine (0.66-1.25) mg/dL Est GFR (CKD-EPI)AfAm (>60 ml/min/1.73 sqM) Est GFR (CKD-EPI)NonAf (>60 ml/min/1.73 sqM) Glucose (74-99) mg/dL Plasma Lactic Acid Olaf (0.7-2.0) mmol/L Calcium (8.4-10.2) mg/dL Magnesium (1.6-2.3) mg/dL Troponin I <0.012 (0.000-0.034) ng/mL Stool Occult Blood (Negative) Blood Type Blood Type Recheck Bld Type Recheck Status Antibody Screen Crossmatch Spec Expiration Date Disposition Clinical Impression: Atrial flutter Disposition: ADMITTED IP TO THIS HOSP Condition: Serious Referrals: Chelsea Cardoza MD [Primary Care Provider] - 1-2 days
[2021-11-27 16:07] LABS: Partial Thromboplastin Time 24.3 sec (22.0-30.0); Prothrombin Time 10.5 sec (9.0-12.0)
[2021-11-27 16:12] LABS: Calcium 8.5 mg/dL (8.4-10.2); Potassium 4.8 mmol/L (3.5-5.1)
[2021-11-27 16:14] LABS: Anisocytosis Moderate; Basophils % (A) 0 %; Eosinophils % (A) 0 %; HCT 24.8 % (39.0-53.0); Hypochromasia Marked; Lymphocytes # (A) 0.6 k/uL (1.0-4.8); Lymphocytes % (A) 5 %; MCH 20.2 pg (25.0-35.0); MCHC 27.7 g/dL (31.0-37.0); MCV 73.1 fL (80.0-100.0); Microcytosis Marked; Monocytes # (A) 0.5 k/uL (0-1.0); Monocytes % (A) 4 %; Neutrophils # (A) 10.7 k/uL (1.3-7.7); Neutrophils % (A) 89 %; Platelet Count 371 k/uL (150-450); Poikilocytosis Moderate; RDW 20.9 % (11.5-15.5); WBC 12.1 k/uL (3.8-10.6)
[2021-11-27 16:23] LABS: HGB 6.9 gm/dL (13.0-17.5)
[2021-11-27] MEDS ORDERED: NALOXONE 0.4 MG/ML 1 ML VIAL IV PRN (17:53)
[2021-11-27] MEDS: PANTOPRAZOLE 40 MG/10 ML VIAL IVP STA ×2 (19:59→21:32)
[2021-11-27] MEDS: ACETAMINOPHEN TAB 325 MG TAB PO PRN (21:33)
[2021-11-27] MEDS: SODIUM CHLORIDE 0.9% 1,000 ML IV SCH (21:35)
[2021-11-27 23:27] LABS: Anisocytosis Moderate; Basophils % (A) 0 %; Eosinophils % (A) 0 %; Hypochromasia Marked; Lymphocytes # (A) 0.4 k/uL (1.0-4.8); Lymphocytes % (A) 4 %; MCH 20.5 pg (25.0-35.0); MCHC 28.2 g/dL (31.0-37.0); MCV 72.6 fL (80.0-100.0); Mean Platelet Volume 7.8; Microcytosis Marked; Monocytes # (A) 0.4 k/uL (0-1.0); Monocytes % (A) 4 %; Neutrophils # (A) 9.8 k/uL (1.3-7.7); Neutrophils % (A) 91 %; Platelet Count 297 k/uL (150-450); Poikilocytosis Marked; RBC 3.16 m/uL (4.30-5.90); RDW 20.9 % (11.5-15.5); WBC 10.8 k/uL (3.8-10.6)
[2021-11-27 23:35] LABS: HGB 6.5 gm/dL (13.0-17.5)
[2021-11-28] MEDS ORDERED: IBUPROFEN 400 MG TAB PO PRN (00:13)
[2021-11-28] MEDS: ACETAMINOPHEN TAB 325 MG TAB PO PRN (03:37)
[2021-11-28] MEDS ORDERED: ALBUTEROL NEBULIZED 2.5 MG/3 ML INHALATION PRN (10:20)
[2021-11-28] MEDS ORDERED: CYCLOBENZAPRINE 10 MG TAB PO PRN (10:20)
[2021-11-28] MEDS ORDERED: ALBUTEROL HFA INHALER INHALATION PRN (10:20)
--- NOTE | 2021-11-28 10:30 | P.HPIM ---
History of Present Illness 55-year-old pleasant male came in with the complaints of generalized tiredness weakness found to have severe anemia and hematology office. Patient was sent in here where for blood transfusion. Patient received 1 unit of blood transfusion after which patient had fever which was treated and subsequently received another unit of blood transfusion. Patient's hemoglobin was 6.5 before the last blood transfusion. Patient denied any lightheadedness weakness at this time. Patient was also had atrial flutter secondary to hypovolemia. Patient the has exposure to sick contacts after which patient started having diarrhea patient jones d diarrhea and less today. Patient was hypotensive as well. Patient denied any dark stools or blood in the stools. Patient does have significant history of juvenile polyposis coli, had history of Duarte's esophagus. Patient had colectomy in the past for juvenile polyposis. REVIEW OF SYSTEMS: CONSTITUTIONAL: Mentioned in the interval history HEENT: No recent visual problems or hearing problems. Denied any sore throat. CARDIOVASCULAR: No chest pain, orthopnea, PND, no palpitations, no syncope. PULMONARY: No shortness of breath, no cough, no hemoptysis. GASTROINTESTINAL: No diarrhea, no nausea, no vomiting, no abdominal pain. NEUROLOGICAL: No headaches, no weakness, no numbness. HEMATOLOGICAL: Denies any bleeding or petechiae. GENITOURINARY: Denies any burning micturition, frequency, or urgency. MUSCULOSKELETAL/RHEUMATOLOGICAL: Denies any joint pain, swelling, or any muscle pain. ENDOCRINE: Denies any polyuria or polydipsia. The rest of the 14-point review of systems is negative. PHYSICAL EXAMINATION: GENERAL: The patient is alert and oriented x3, not in any acute distress. Obese HEENT: Pupils are round and equally reacting to light. EOMI. No scleral icterus. Does have conjunctival pallor. Normocephalic, atraumatic. No pharyngeal erythema. No thyromegaly. CARDIOVASCULAR: S1 and S2 present. No murmurs, rubs, or gallops. PULMONARY: Chest is clear to auscultation, no wheezing or crackles. ABDOMEN: Soft, nontender, nondistended, normoactive bowel sounds. No palpable organomegaly. MUSCULOSKELETAL: No joint swelling or deformity. EXTREMITIES: No cyanosis, clubbing, or pedal edema. NEUROLOGICAL: Gross neurological examination did not reveal any focal deficits. SKIN: No rashes. Assessment and plan -Generalized weakness tiredness and lightheadedness: Significant secondary to severe anemia and intravascular depletion and dehydration, diarrhea. Patient received total of 3 units of transfusion. There is no evidence of acute GI bleed. -Chronic anemia appears to have iron deficiency anemia patient receives IV iron infusions in the hematology office -Atrial flutter, tachycardia: Secondary to intravascular depletion and anemia which resolved at this time patient does not have any evidence of atrial fibrillation at this time. Considering his severe anemia and no evidence of atrial fibrillation Do not believe patient will require anticoagulation at this time. -10 gastroesophageal reflux disease for which patient takes Prilosec which will be continued patient does have history of Duarte's esophagus -History of for juvenile will polyposis coli status post colectomy patient had removal of gastric polyps in the past -Asthma without any acute exacerbation -Hypothyroidism - hypertension patient is hypotensive secondary to hypovolemia hold off antidepressant medications today monitor blood pressure. Possibly of discharge tomorrow. DVT prophylaxis: Ambulation Past Medical History Past Medical History: Asthma, GERD/Reflux, Hypertension, Thyroid Disorder Additional Past Medical History / Comment(s): HERNIA UMBILICAL, hx. juvenile polyposis, covid 07/2021, anemia History of Any Multi-Drug Resistant Organisms: None Reported Past Surgical History: Bowel Resection, Hernia Repair Additional Past Surgical History / Comment(s): large intestine resection r/t polyps-secondary to juvenile polyposis, colonoscopy Past Anesthesia/Blood Transfusion Reactions: No Reported Reaction Additional Past Anesthesia/Blood Transfusion Reaction / Comment(s): no problems with prior blood transfusion Past Psychological History: No Psychological Hx Reported Smoking Status: Never smoker Past Alcohol Use History: None Reported Past Drug Use History: None Reported - Past Family History Mother Family Medical History: Cancer Additional Family Medical History / Comment(s): breast CA Sister(s) Additional Family Medical History / Comment(s): juvenile polyposis Medications and Allergies Home Medications Medication Instructions Recorded Confirmed Type Omeprazole [PriLOSEC] 20 mg PO BID 11/19/14 11/27/21 History lisinopriL [Zestril] 10 mg PO DAILY 11/19/14 11/27/21 History Budesonide/Formoterol Fumarate 2 puff INHALATION RT-BID 01/02/19 11/27/21 History [Symbicort 160-4.5 Mcg Inhaler] Levothyroxine Sodium [Synthroid] 250 mcg PO DAILY 01/02/19 11/27/21 History Albuterol Inhaler [Ventolin Hfa 2 puff INHALATION RT-QID PRN 11/27/21 11/27/21 History Inhaler] Albuterol Nebulized [Ventolin 2.5 mg INHALATION RT-QID PRN 11/27/21 11/27/21 History Nebulized] Cetirizine HCl 10 mg PO DAILY 11/27/21 11/27/21 History Cyclobenzaprine [Flexeril] 10 mg PO DAILY PRN 11/27/21 11/27/21 History Allergies Allergy/AdvReac Type Severity Reaction Status Date / Time No Known Allergies Allergy Verified 11/27/21 16:35 Physical Exam Vitals: Vital Signs Temp Pulse Pulse Resp BP BP Pulse Ox 11/28/21 07:05 99 F 86 16 111/60 96 11/28/21 04:13 99.4 F 81 18 127/60 96 11/28/21 04:00 99.2 F 97 16 130/72 96 11/28/21 03:43 99 F 91 17 159/81 100 11/28/21 03:33 99.7 F H 101 H 18 132/80 95 11/27/21 23:54 99.3 F 11/27/21 23:31 101.2 F H 97 18 125/58 96 11/27/21 23:07 100 F H 11/27/21 21:35 102 F H 113 H 18 137/77 99 11/27/21 20:08 101 F H 108 H 18 135/68 98 11/27/21 19:58 101 F H 105 H 19 123/93 98 11/27/21 18:30 100.3 F H 111 H 18 133/69 98 11/27/21 18:00 100 F H 104 H 18 108/69 96 11/27/21 17:59 99.9 F H 107 H 18 123/61 96 11/27/21 17:50 99.6 F 105 H 18 132/67 95 11/27/21 16:11 88 20 129/60 90 L 11/27/21 15:27 104 H 20 11/27/21 15:06 98.8 F 85 18 149/80 98 Intake and Output 11/27/21 11/28/21 11/28/21 22:59 06:59 14:59 Intake Total 197 240 430 Balance 197 240 430 Intake: Oral 240 120 Blood Product 197 0 310 Rc As-1 Unit 0 310 [id number] Rc As-1 Unit 197 [id number] Other: Voiding Method Toilet # Voids 1 # Bowel Movements 1 Weight 156.489 kg 156.489 kg Results CBC & Chem 7: 11/27/21 23:06 11/27/21 15:42 Labs: Abnormal Lab Results - Last 24 Hours (Table) 11/27/21 11/27/21 11/27/21 Range/Units 15:42 15:42 15:42 WBC 12.1 H (3.8-10.6) k/uL RBC 3.40 L (4.30-5.90) m/uL Hgb 6.9 L* (13.0-17.5) gm/dL Hct 24.8 L (39.0-53.0) % MCV 73.1 L (80.0-100.0) fL MCH 20.2 L (25.0-35.0) pg MCHC 27.7 L (31.0-37.0) g/dL RDW 20.9 H (11.5-15.5) % Neutrophils # 10.7 H (1.3-7.7) k/uL Lymphocytes # 0.6 L (1.0-4.8) k/uL Sodium 136 L (137-145) mmol/L Glucose 119 H (74-99) mg/dL Crossmatch See Detail 11/27/21 11/27/21 Range/Units 21:00 23:06 WBC 10.8 H (3.8-10.6) k/uL RBC 3.16 L (4.30-5.90) m/uL Hgb 6.5 L* (13.0-17.5) gm/dL Hct 23.0 L (39.0-53.0) % MCV 72.6 L (80.0-100.0) fL MCH 20.5 L (25.0-35.0) pg MCHC 28.2 L (31.0-37.0) g/dL RDW 20.9 H (11.5-15.5) % Neutrophils # 9.8 H (1.3-7.7) k/uL Lymphocytes # 0.4 L (1.0-4.8) k/uL Sodium (137-145) mmol/L Glucose (74-99) mg/dL Crossmatch See Detail Thrombosis Risk Factor Assmnt - Choose All That Apply Each Factor Represents 1 point: Age 41-60 years, Obesity (BMI >25) Thrombosis Risk Factor Assessment Total Risk Factor Score: 2 Thrombosis Risk Factor Assessment Level: Low Risk
[2021-11-28 13:27] LABS: Anisocytosis Moderate; Basophils % (A) 1 %; Eosinophils % (A) 0 %; HCT 27.9 % (39.0-53.0); Hypochromasia Marked; Lymphocytes # (A) 0.8 k/uL (1.0-4.8); Lymphocytes % (A) 12 %; MCH 22.1 pg (25.0-35.0); MCHC 28.6 g/dL (31.0-37.0); MCV 77.5 fL (80.0-100.0); Mean Platelet Volume 9.8; Microcytosis Moderate; Monocytes # (A) 0.6 k/uL (0-1.0); Monocytes % (A) 8 %; Neutrophils # (A) 5.7 k/uL (1.3-7.7); Neutrophils % (A) 78 %; Platelet Count 261 k/uL (150-450); Poikilocytosis Marked; RBC 3.61 m/uL (4.30-5.90); RDW 20.7 % (11.5-15.5); WBC 7.3 k/uL (3.8-10.6)
[2021-11-28] MEDS: PANTOPRAZOLE 40 MG TABLET PO SCH (13:29)
--- NOTE | 2021-11-28 14:40 | CONS ---
CONSULTATION DATE OF SERVICE: 11/28/2021 CHIEF COMPLAINT: Tired. REASON FOR CONSULTATION: Iron deficiency anemia. Mart is a very pleasant 56-year-old gentleman who is well known to our service under the care of Dr. Keller. He has a history of juvenile polyposis syndrome and recurrent iron deficiency anemia. In fact, he had a blood count done as an outpatient yesterday and his hemoglobin was about 6, so the patient was sent to the emergency department. Upon arrival in the emergency department, his hemoglobin was rechecked; it was 6.5, associated with significant microcytosis, so the patient ended up being admitted to the hospital and he did receive transfusion with packed red blood cells. The patient is known to have recurrent iron deficiency anemia and he has been receiving parenteral iron supplements intermittently in the outpatient setting. The patient is known to have a history of juvenile polyposis syndrome. He underwent subtotal colectomy at [facility] about 13 years ago and he is on periodic screening with colonoscopy and EGD every two years; in fact, he is due this year. He feels better now after the transfusion. He denies any melena, hematochezia, hematuria, hemoptysis, hematemesis or epistaxis. No fever or chills. Appetite is good and there is no weight loss. PAST MEDICAL HISTORY: In addition to what is stated above in regard to his juvenile polyposis syndrome, he has a history of hypertension, recurrent iron deficiency anemia and hypothyroidism. PAST SURGICAL HISTORY: Subtotal colectomy and hernia repair. FAMILY HISTORY: His father and his sister both have juvenile polyposis syndrome and his mother had breast cancer. SOCIAL HISTORY: No history of smoking or alcohol abuse. ALLERGIES: NO KNOWN DRUG ALLERGY. HOME MEDICATIONS: His home medications include Flexeril 10 mg as needed, cetirizine 10 mg daily, albuterol inhaler as needed, Zestril 10 mg daily, omeprazole 20 mg b.i.d., Synthroid 250 mcg daily. REVIEW OF SYSTEMS: As stated above in history of present illness; otherwise negative. PHYSICAL EXAMINATION: He is alert, oriented x3. He does not appear to be in distress. Well developed, well nourished. VITAL SIGNS: Temperature 98.7, afebrile, pulse 85 and regular, respiration 18, blood pressure 137/69, pulse ox 96% on room air. HEENT: Normocephalic, atraumatic. No obvious icterus. NECK: Supple. No jugular venous distention. CHEST: Equal expansion bilaterally. LUNGS: Clear to auscultation and percussion. HEART: Regular rate and rhythm. ABDOMEN: Soft. No obvious organomegaly. He has large ventral hernia. EXTREMITIES: No edema. SKIN: No significant bruises, ecchymosis or petechiae. LYMPHATIC SYSTEM: No cervical or supraclavicular lymph nodes. MUSCULOSKELETAL: Moving all extremities appropriately. No percussion tenderness over spine or sternum. LABORATORY DATA: Recent laboratory data show WBC of 10.8, hemoglobin 6.5, hematocrit 23.0, MCV 72.6, platelet 297. IMPRESSION: 1. History of juvenile polyposis syndrome as stated above. 2. Recurrent iron deficiency anemia secondary to above. Patient requiring intermittent parenteral iron infusions in the outpatient setting. RECOMMENDATION: 1. Will monitor CBC for now. 2. The patient should have repeat EGD and colonoscopy. He still has part of his colon, to be monitored for recurrent polyps. Also the patient is susceptible to gastric polyps as well. He is due for repeat procedures this year, anyway. He has been under the care of Dr. Clements for that. 3. Check iron panel while in the hospital. 4. If he remains hemodynamically stable, he could be discharged home and then parenteral iron will be provided in the outpatient setting. The above was discussed in detail with the patient. I have answered all of his questions. MMODL / IJN: [id number] /
[2021-11-28 15:00] LABS: Mixed Population RBC Present; Toxic Granulation Present
--- NOTE | 2021-11-28 16:35 | P.CRDCN ---
History of Present Illness History of present illness: HISTORY OF PRESENTING ILLNESS Patient is a pleasant 56-year-old male with history of prior bowel resection for juvenile polyps, hypothyroidism, chronic anemia related to iron deficiency requ iring transfusions and new onset of atrial flutter who presents secondary to low blood counts. Patient states he has been feeling fatigued and therefore came to emergency department was noted to have hemoglobin on the sixes. He received blood transfusion with hemoglobin up to 8 today and states he feels back to his normal self. He states he is not getting any hematochezia or melena however has had chronic issue with anemia and prior colonoscopy and EGDs have not identified any source of bleeding. This however has been his first time needing a blood transfusion. He was noted to be incidentally in atrial flutter with predominantly controlled rates mainly in the 80s up to 90s and occasionally in the low 100s. He denies any prior similar history. His only risk factors hypertension and denies any diabetes, congestive heart failure, stroke or CAD. REVIEW OF SYSTEMS At the time of my exam: CONSTITUTIONAL: Denies fever or chills. CARDIOVASCULAR: Denies chest pain, +shortness of breath, no orthopnea, PND or palpitations. RESPIRATORY: Denies cough. GASTROINTESTINAL: Denies abdominal pain, diarrhea, constipation, nausea or vomiting. MUSCULOSKELETAL: Denies myalgias. NEUROLOGIC: Denies numbness, tingling or weakness. ENDOCRINE: Denies fatigue, weight change, polydipsia or polyurina. GENITOURINARY: Denies burning, hematuria or urgency with micturation. HEMATOLOGIC: +anemia, no bleeding. PHYSICAL EXAMINATION Vital signs reviewed. CONSTITUTIONAL: No apparent distress. HEENT: Head is normocephalic. Pupils are equal, round. Sclerae anicteric. Mucous membranes of the mouth are moist. No JVD. No carotid bruit. CHEST EXAMINATION: Lungs are clear to auscultation. No chest wall tenderness is noted on palpation or with deep breathing. HEART EXAMINATION: Regular rate and rhythm. S1, S2 heard. No murmurs, gallops or rub. ABDOMEN: Soft, nontender. Positive bowel sounds. EXTREMITIES: 2+ peripheral pulses, no lower extremity edema and no calf tenderness. NEUROLOGIC EXAMINATION: Patient is awake, alert and oriented x3. ASSESSMENT 1. New typical atrial flutter with controlled ventricular rates 2. Hypertension 3. Iron deficiency anemia, no source of GI bleed noted on prior workup 4. Chronic dyspnea, likely component of anemia 5. Obesity 6. History of hypothyroidism PLAN Patient's main presentation appears related to anemia and appears improved and back at baseline after blood transfusion. Long history of anemia likely related to his bowel resection however no note of any source of GI bleed in the past. Patient's chads VASC is only 1 for hypertension and therefore would not recommend anticoagulation especially with his anemia. We will stop his home amlodipine and start low-dose Toprol 25 mg daily for somewhat better rate control. May consider outpatient ablation however would like to optimize anemia before consideration. Check 2-D echo however this may also be performed as an outpatient. Check TSH for completeness sake. Patient may be discharged once stabilized from a hemoglobin standpoint and workup may be performed as an outpatient as well. Past Medical History Past Medical History: Asthma, GERD/Reflux, Hypertension, Thyroid Disorder Additional Past Medical History / Comment(s): HERNIA UMBILICAL, hx. juvenile polyposis, covid 07/2021, anemia History of Any Multi-Drug Resistant Organisms: None Reported Past Surgical History: Bowel Resection, Hernia Repair Additional Past Surgical History / Comment(s): large intestine resection r/t polyps-secondary to juvenile polyposis, colonoscopy Past Anesthesia/Blood Transfusion Reactions: No Reported Reaction Additional Past Anesthesia/Blood Transfusion Reaction / Comment(s): no problems with prior blood transfusion Past Psychological History: No Psychological Hx Reported Smoking Status: Never smoker Past Alcohol Use History: None Reported Past Drug Use History: None Reported - Past Family History Mother Family Medical History: Cancer Additional Family Medical History / Comment(s): breast CA Sister(s) Additional Family Medical History / Comment(s): juvenile polyposis Medications and Allergies Home Medications Medication Instructions Recorded Confirmed Type Omeprazole [PriLOSEC] 20 mg PO BID 11/19/14 11/27/21 History lisinopriL [Zestril] 10 mg PO DAILY 11/19/14 11/27/21 History Budesonide/Formoterol Fumarate 2 puff INHALATION RT-BID 01/02/19 11/27/21 History [Symbicort 160-4.5 Mcg Inhaler] Levothyroxine Sodium [Synthroid] 250 mcg PO DAILY 01/02/19 11/27/21 History Albuterol Inhaler [Ventolin Hfa 2 puff INHALATION RT-QID PRN 11/27/21 11/27/21 History Inhaler] Albuterol Nebulized [Ventolin 2.5 mg INHALATION RT-QID PRN 11/27/21 11/27/21 History Nebulized] Cetirizine HCl 10 mg PO DAILY 11/27/21 11/27/21 History Cyclobenzaprine [Flexeril] 10 mg PO DAILY PRN 11/27/21 11/27/21 History Allergies Allergy/AdvReac Type Severity Reaction Status Date / Time No Known Allergies Allergy Verified 11/27/21 16:35 Physical Exam Vitals: Vital Signs Temp Pulse Pulse Resp BP BP Pulse Ox 11/28/21 12:00 98.7 F 85 18 137/69 96 11/28/21 08:00 99.0 F 78 18 129/57 96 11/28/21 07:05 99 F 86 16 111/60 96 11/28/21 04:13 99.4 F 81 18 127/60 96 11/28/21 04:00 99.2 F 97 16 130/72 96 11/28/21 03:43 99 F 91 17 159/81 100 11/28/21 03:33 99.7 F H 101 H 18 132/80 95 11/27/21 23:54 99.3 F 11/27/21 23:31 101.2 F H 97 18 125/58 96 11/27/21 23:07 100 F H 11/27/21 21:35 102 F H 113 H 18 137/77 99 11/27/21 20:08 101 F H 108 H 18 135/68 98 11/27/21 19:58 101 F H 105 H 19 123/93 98 11/27/21 18:30 100.3 F H 111 H 18 133/69 98 11/27/21 18:00 100 F H 104 H 18 108/69 96 11/27/21 17:59 99.9 F H 107 H 18 123/61 96 11/27/21 17:50 99.6 F 105 H 18 132/67 95 Intake and Output 11/28/21 11/28/21 11/28/21 06:59 14:59 22:59 Intake Total 240 550 Balance 240 550 Intake: Oral 240 240 Blood Product 0 310 Rc As-1 Unit 0 310 [id number] Other: Voiding Method Toilet # Voids 1 1 # Bowel Movements 1 Weight 156.489 kg Results 11/28/21 12:28 11/27/21 15:42 CBC 11/27/21 11/28/21 Range/Units 23:06 12:28 WBC 10.8 H 7.3 (3.8-10.6) k/uL RBC 3.16 L 3.61 L (4.30-5.90) m/uL Hgb 6.5 L* 8.0 L D (13.0-17.5) gm/dL Hct 23.0 L 27.9 L (39.0-53.0) % Plt Count 297 261 (150-450) k/uL Current Medications Generic Name Dose Route Start Last Admin Trade Name Freq PRN Reason Stop Dose Admin Acetaminophen 650 mg 11/27/21 21:26 11/28/21 03:37 Acetaminophen Tab 325 Mg Tab PO 650 mg Q6HR PRN Administration Fever and/ or Pain Albuterol Sulfate 2.5 mg 11/28/21 10:20 Albuterol Nebulized 2.5 Mg/3 Ml INHALATION RT-QID PRN Shortness Of Breath Budesonide/Formoterol Fumarate 2 puff 11/28/21 20:00 Symbicort 160-4.5 Mcg Inhaler INHALATION RT-BID STEPHEN Cyclobenzaprine HCl 10 mg 11/28/21 10:20 Cyclobenzaprine 10 Mg Tab PO DAILY PRN Muscle Pain Sodium Chloride 1,000 mls @ 75 mls/hr 11/27/21 18:00 11/27/21 21:35 Saline 0.9% IV Not Given .[id number] [facility] Levothyroxine Sodium 250 mcg 11/29/21 06:30 Levothyroxine 125 Mcg Tab PO DAILY@0630 [facility] Metoprolol Succinate 25 mg 11/28/21 16:30 Metoprolol Succinate (Er) 25 Mg Tab.Er.24h PO DAILY [facility] Naloxone HCl 0.2 mg 11/27/21 17:53 Naloxone 0.4 Mg/Ml 1 Ml Vial IV Q2M PRN Opioid Reversal Pantoprazole Sodium 40 mg 11/28/21 10:30 11/28/21 13:29 Pantoprazole 40 Mg Tablet PO 40 mg [id number] [facility] Administration Intake and Output 11/28/21 11/28/21 11/28/21 06:59 14:59 22:59 Intake Total 240 550 Balance 240 550 Intake: Oral 240 240 Blood Product 0 310 Rc As-1 Unit 0 310 [id number] Other: Voiding Method Toilet # Voids 1 1 # Bowel Movements 1 Weight 156.489 kg 11/28/21 12:28 11/27/21 15:42
[2021-11-28 17:03] LABS: % Iron Saturation 5.65 (15.00-50.00); Ferritin 19.9 ng/mL (22.0-322.0)
[2021-11-28] MEDS: SODIUM CHLORIDE 0.9% 1,000 ML IV SCH (17:21)
[2021-11-28] MEDS: METOPROLOL SUCCINATE (ER) 25 MG TAB.ER.24H PO SCH (17:32)
[2021-11-28] MEDS: SYMBICORT 160-4.5 MCG INHALER INHALATION SCH (19:53)
[2021-11-29] MEDS ORDERED: LEVOTHYROXINE 125 MCG TAB PO SCH (06:30)
[2021-11-29] MEDS: PANTOPRAZOLE 40 MG TABLET PO SCH (06:51)
[2021-11-29] MEDS: SYMBICORT 160-4.5 MCG INHALER INHALATION SCH (07:35)
[2021-11-29] MEDS ORDERED: amLODIPine 5 MG TAB PO SCH (09:00)
[2021-11-29] MEDS: METOPROLOL SUCCINATE (ER) 25 MG TAB.ER.24H PO SCH (09:06)
[2021-11-29 10:53] VITALS: BP 115/58; PULSE 82; RESP 16; TEMP 98.6
[2021-11-29 10:58] LABS: Anisocytosis Moderate; HGB 7.9 gm/dL (13.0-17.5); Hypochromasia Marked; MCH 22.1 pg (25.0-35.0); MCHC 28.2 g/dL (31.0-37.0); MCV 78.4 fL (80.0-100.0); Mean Platelet Volume 8.3; Microcytosis Moderate; Platelet Count 294 k/uL (150-450); Poikilocytosis Marked; RBC 3.57 m/uL (4.30-5.90); WBC 6.3 k/uL (3.8-10.6)
[2021-11-29 11:08] LABS: Potassium 4.7 mmol/L (3.5-5.1)
--- NOTE | 2021-11-29 12:05 | P.GSCN ---
History of Present Illness Consult date: 11/29/21 Reason for Consult: Anemia History of present illness: This a 56-year-old male who was admitted for anemia. He will 6.5. Patient did receive a blood transfusion. Patient is a previous history of subtotal colectomy for juvenile polyposis syndrome. Patient states that he has not had any rectal bleeding. Patient has a chronic massive incisional hernia. Patient denies any bowel obstruction symptoms. Past Medical History Past Medical History: Asthma, GERD/Reflux, Hypertension, Thyroid Disorder Additional Past Medical History / Comment(s): HERNIA UMBILICAL, hx. juvenile po lyposis, covid 07/2021, anemia History of Any Multi-Drug Resistant Organisms: None Reported Past Surgical History: Bowel Resection, Hernia Repair Additional Past Surgical History / Comment(s): large intestine resection r/t po lyps-secondary to juvenile polyposis, colonoscopy Past Anesthesia/Blood Transfusion Reactions: No Reported Reaction Additional Past Anesthesia/Blood Transfusion Reaction / Comm: no problems with prior blood transfusion Past Psychological History: No Psychological Hx Reported Smoking Status: Never smoker Past Alcohol Use History: None Reported Past Drug Use History: None Reported - Past Family History Mother Family Medical History: Cancer Additional Family Medical History / Comment(s): breast CA Sister(s) Additional Family Medical History / Comment(s): juvenile polyposis Medications and Allergies Home Medications Medication Instructions Recorded Confirmed Type Omeprazole [PriLOSEC] 20 mg PO BID 11/19/14 11/27/21 History Budesonide/Formoterol Fumarate 2 puff INHALATION RT-BID 01/02/19 11/27/21 History [Symbicort 160-4.5 Mcg Inhaler] Levothyroxine Sodium [Synthroid] 250 mcg PO DAILY 01/02/19 11/27/21 History Albuterol Inhaler [Ventolin Hfa 2 puff INHALATION RT-QID PRN 11/27/21 11/27/21 History Inhaler] Albuterol Nebulized [Ventolin 2.5 mg INHALATION RT-QID PRN 11/27/21 11/27/21 History Nebulized] Cetirizine HCl 10 mg PO DAILY 11/27/21 11/27/21 History Cyclobenzaprine [Flexeril] 10 mg PO DAILY PRN 11/27/21 11/27/21 History Metoprolol Succinate (ER) [Toprol 25 mg PO DAILY #30 11/29/21 Rx XL] Allergies Allergy/AdvReac Type Severity Reaction Status Date / Time No Known Allergies Allergy Verified 11/27/21 16:35 Surgical - Exam Vital Signs Temp Pulse Resp BP Pulse Ox 98.8 F 85 18 149/80 98 11/27/21 15:06 11/27/21 15:06 11/27/21 15:06 11/27/21 15:06 11/27/21 15:06 - General well developed, well nourished, no distress - Eyes PERRL - ENT normal pinna - Neck no masses - Respiratory normal expansion - Cardiovascular Rhythm: regular - Abdomen Patient's morbid obesity. BMI is 47. Patient has a large chronic incisional hernia. There is bowel seen peristalsing underneath the skin. Abdomen: soft, non tender Results - Labs 11/29/21 09:29 11/29/21 09:29 Abnormal Lab Results - Last 24 Hours (Table) 11/28/21 11/28/21 11/29/21 Range/Units 12:28 13:33 09:29 RBC 3.61 L 3.57 L (4.30-5.90) m/uL Hgb 8.0 L D 7.9 L (13.0-17.5) gm/dL Hct 27.9 L 28.0 L (39.0-53.0) % MCV 77.5 L 78.4 L (80.0-100.0) fL MCH 22.1 L 22.1 L (25.0-35.0) pg MCHC 28.6 L 28.2 L (31.0-37.0) g/dL RDW 20.7 H 21.0 H (11.5-15.5) % Lymphocytes # 0.8 L (1.0-4.8) k/uL Sodium (137-145) mmol/L Carbon Dioxide (22-30) mmol/L Glucose (74-99) mg/dL Calcium (8.4-10.2) mg/dL Iron 23 L (65-175) ug/dL % Saturation 5.65 L (15.00-50.00) Ferritin 19.9 L (22.0-322.0) ng/mL 11/29/21 Range/Units 09:29 RBC (4.30-5.90) m/uL Hgb (13.0-17.5) gm/dL Hct (39.0-53.0) % MCV (80.0-100.0) fL MCH (25.0-35.0) pg MCHC (31.0-37.0) g/dL RDW (11.5-15.5) % Lymphocytes # (1.0-4.8) k/uL Sodium 135 L (137-145) mmol/L Carbon Dioxide 21 L (22-30) mmol/L Glucose 102 H (74-99) mg/dL Calcium 8.0 L (8.4-10.2) mg/dL Iron (65-175) ug/dL % Saturation (15.00-50.00) Ferritin (22.0-322.0) ng/mL Diabetes panel 11/29/21 Range/Units 09:29 Sodium 135 L (137-145) mmol/L Potassium 4.7 (3.5-5.1) mmol/L Chloride 105 (98-107) mmol/L Carbon Dioxide 21 L (22-30) mmol/L BUN 15 (9-20) mg/dL Creatinine 1.16 (0.66-1.25) mg/dL Glucose 102 H (74-99) mg/dL Calcium 8.0 L (8.4-10.2) mg/dL Thyroid panel 11/28/21 Range/Units 15:42 TSH 4.360 (0.465-4.680) mIU/L Calcium panel 11/29/21 Range/Units 09:29 Calcium 8.0 L (8.4-10.2) mg/dL Pituitary panel 11/28/21 11/29/21 Range/Units 15:42 09:29 Sodium 135 L (137-145) mmol/L Potassium 4.7 (3.5-5.1) mmol/L Chloride 105 (98-107) mmol/L Carbon Dioxide 21 L (22-30) mmol/L BUN 15 (9-20) mg/dL Creatinine 1.16 (0.66-1.25) mg/dL Glucose 102 H (74-99) mg/dL Calcium 8.0 L (8.4-10.2) mg/dL TSH 4.360 (0.465-4.680) mIU/L Adrenal panel 11/29/21 Range/Units 09:29 Sodium 135 L (137-145) mmol/L Potassium 4.7 (3.5-5.1) mmol/L Chloride 105 (98-107) mmol/L Carbon Dioxide 21 L (22-30) mmol/L BUN 15 (9-20) mg/dL Creatinine 1.16 (0.66-1.25) mg/dL Glucose 102 H (74-99) mg/dL Calcium 8.0 L (8.4-10.2) mg/dL Assessment and Plan Assessment: Patient denies any history of GI bleed. Patient's hemoglobin will be observed. If there is a change in his hemoglobin or evidence of GI bleed. He'll undergo endoscopy.
--- NOTE | 2021-11-29 12:59 | P.DS ---
Providers Date of admission: 11/27/21 17:53 Attending physician: Nida Coleman MD Consults: 11/27/21 17:54 Consult Physician Routine Consulting Provider: Can Pollard Consult Reason/Comments: new onset a flutter Do you want consulting provider notified?: Already Contacted 11/27/21 18:04 Consult Physician Routine Consulting Provider: Dominic Keller Consult Reason/Comments: anemia Do you want consulting provider notified?: Yes 11/28/21 10:30 Consult Physician Routine Consulting Provider: Jefe Pérez Consult Reason/Comments: anemia Do you want consulting provider notified?: Yes Primary care physician: [facility] Course: 55-year-old pleasant male came in with the complaints of generalized tiredness weakness found to have severe anemia and hematology office. Patient was sent in here where for blood transfusion. Patient received 1 unit of blood transfusion after which patient had fever which was treated and subsequently received another unit of blood transfusion. Patient's hemoglobin was 6.5 before the last blood transfusion. Patient denied any lightheadedness weakness at this time. Patient was also had atrial flutter secondary to hypovolemia. Patient the has exposure to sick contacts after which patient started having diarrhea patient had diarrhea and less today. Patient was hypotensive as well. Patient denied any dark stools or blood in the stools. Patient does have significant history of juvenile polyposis coli, had history of Duarte's esophagus. Patient had colectomy in the past for juvenile polyposis. 11/29/2021 Patient's hemoglobin is stable no evidence of further GI bleed patient will be discharged today. Patient was evaluated by general surgery and hematology patient will need an outpatient scope patient the will follow-up with either general surgery or gastroenterology for outpatient scope. Patient was evaluated by cardiology for atrial fibrillation not recommending any anticoagulation patient will be started on metoprolol sustained release. Patient is hypotensive NAN inhibitor and amlodipine are being discontinued at this time for that reason PHYSICAL EXAMINATION: GENERAL: The patient is alert and oriented x3, not in any acute distress. Obese HEENT: Pupils are round and equally reacting to light. EOMI. No scleral icterus. Does have conjunctival pallor. Normocephalic, atraumatic. No pharyngeal erythema. No thyromegaly. CARDIOVASCULAR: S1 and S2 present. No murmurs, rubs, or gallops. PULMONARY: Chest is clear to auscultation, no wheezing or crackles. ABDOMEN: Soft, nontender, nondistended, normoactive bowel sounds. No palpable organomegaly. MUSCULOSKELETAL: No joint swelling or deformity. EXTREMITIES: No cyanosis, clubbing, or pedal edema. NEUROLOGICAL: Gross neurological examination did not reveal any focal deficits. SKIN: No rashes. Assessment and plan -Generalized weakness tiredness and lightheadedness: Significant secondary to severe anemia and intravascular depletion and dehydration, diarrhea. Patient received total of 3 units of transfusion. There is no evidence of acute GI bleed. Diarrhea resolved at this time -Chronic anemia appears to have iron deficiency anemia patient receives IV iron infusions in the hematology office -Atrial flutter, tachycardia: Secondary to intravascular depletion and anemia which resolved at this time patient does not have any evidence of atrial fibril lation at this time. Considering his severe anemia and no evidence of atrial fibrillation Do not believe patient will require anticoagulation at this time. - gastroesophageal reflux disease for which patient takes Prilosec which will be continued patient does have history of Duarte's esophagus -History of for juvenile polyposis coli status post colectomy patient had removal of gastric polyps in the past, outpatient coloscopy -Asthma without any acute exacerbation -Hypothyroidism - hypertension patient is hypotensive secondary to hypovolemia hold off antihypertensive medications. Patient Condition at Discharge: Serious Plan - Discharge Summary Discharge Rx Participant: No New Discharge Prescriptions: New Metoprolol Succinate (ER) [Toprol XL] 25 mg PO DAILY #30 Continue Omeprazole [PriLOSEC] 20 mg PO BID Levothyroxine Sodium [Synthroid] 250 mcg PO DAILY Budesonide/Formoterol Fumarate [Symbicort 160-4.5 Mcg Inhaler] 2 puff INHALATION RT-BID Cyclobenzaprine [Flexeril] 10 mg PO DAILY PRN PRN Reason: Muscle Pain Albuterol Inhaler [Ventolin Hfa Inhaler] 2 puff INHALATION RT-QID PRN PRN Reason: Shortness Of Breath Cetirizine HCl 10 mg PO DAILY Albuterol Nebulized [Ventolin Nebulized] 2.5 mg INHALATION RT-QID PRN PRN Reason: Shortness Of Breath Discontinued lisinopriL [Zestril] 10 mg PO DAILY amLODIPine [Norvasc] 5 mg PO DAILY Discharge Medication List Omeprazole [PriLOSEC] 20 mg PO BID 11/19/14 [History] Budesonide/Formoterol Fumarate [Symbicort 160-4.5 Mcg Inhaler] 2 puff INHALATION RT-BID 01/02/19 [History] Levothyroxine Sodium [Synthroid] 250 mcg PO DAILY 01/02/19 [History] Albuterol Inhaler [Ventolin Hfa Inhaler] 2 puff INHALATION RT-QID PRN 11/27/21 [History] Albuterol Nebulized [Ventolin Nebulized] 2.5 mg INHALATION RT-QID PRN 11/27/21 [History] Cetirizine HCl 10 mg PO DAILY 11/27/21 [History] Cyclobenzaprine [Flexeril] 10 mg PO DAILY PRN 11/27/21 [History] Metoprolol Succinate (ER) [Toprol XL] 25 mg PO DAILY #30 11/29/21 [Rx] Follow up Appointment(s)/Referral(s): Can Pollard DO [STAFF PHYSICIAN] - 2 Weeks (Please call to set up a follow-up appointment. Office closed today.) Tricia Clements MD [STAFF PHYSICIAN] - 1 Week (Please call to set up a follow-up appointment. Office closed today.) Chelsea Cardoza MD [Primary Care Provider] - 3 Days (Please call to set up a follow-up appointment. Office closed today. ) Patient Instructions/Handouts: Atrial Flutter (DC) Discharge Disposition: HOME SELF-CARE
--- NOTE | 2021-11-29 17:31 | PN ---
PROGRESS NOTE DATE OF SERVICE: November 29, 2021. CHIEF COMPLAINT: Tired. Mart is seen today in followup. He feels a little tired but overall better since he was admitted to the hospital and received blood transfusion. He denies any melena, hematuria or hemoptysis. CURRENT MEDICATION: Reviewed in electronic medical record. PHYSICAL EXAMINATION: Alert and oriented times three. No acute distress. Well developed, well nourished. Vital signs: Temperature 98.6. Afebrile. Pulse is 82, regular, respirations 16, blood pressure 118/58. HEENT: Normocephalic, atraumatic. No icterus. Neck: Supple. Chest equal expansion bilaterally. Lungs: Clear. Heart is regular. Abdomen: Soft. Large ventral hernia. Extremities: No edema. LABORATORY DATA: From today WBC of 6.3, hemoglobin is 7.9, MCV is 78.4, platelets are 294, iron saturation is 5.65, total iron-binding capacity 409, serum iron 23, ferritin is 19. IMPRESSION: 1. Recurrent iron deficiency anemia. The patient has had this issue before in the past and has been requiring frequent parenteral iron supplement. 2. Juvenile polyposis syndrome status post subtotal colectomy. He is on close surveillance with EGD and colonoscopy every 2 years. RECOMMENDATIONS: 1. The patient is hemodynamically stable and if his hemoglobin remains stable, he could be discharged home. 2. We will arrange for a parenteral iron in the outpatient setting. 3. He will require repeat EGD and colonoscopy soon. The above was discussed with the patient. I answered all his questions. MMODL / IJN: [id number] /
== END 2021-11-29 14:09 | disposition home or self-care (01) | DRG 812 ==
LOC: EC 14:49 → 3SCARD 17:53
PROVIDERS: ADMIT Internal Medicine; ATTEND Internal Medicine
PROC: 30233N1 Transfusion of Nonautologous Red Blood Cells into Peripheral Vein, Percutaneous Approach (ICD-10-PCS; principal; 2021-11-27)
DX: D50.9 Iron deficiency anemia, unspecified (principal); I48.3 Typical atrial flutter; D72.829 Elevated white blood cell count, unspecified; E03.9 Hypothyroidism, unspecified; E66.9 Obesity, unspecified; E86.0 Dehydration; R19.7 Diarrhea, unspecified; E86.1 Hypovolemia; J45.909 Unspecified asthma, uncomplicated; I10 Essential (primary) hypertension; I48.91 Unspecified atrial fibrillation; I95.89 Other hypotension; K21.9 Gastro-esophageal reflux disease without esophagitis; K22.70 Barrett's esophagus without dysplasia; K43.2 Incisional hernia without obstruction or gangrene; Z79.01 Long term (current) use of anticoagulants; Z79.51 Long term (current) use of inhaled steroids; Z79.890 Hormone replacement therapy; Z79.899 Other long term (current) drug therapy; Z80.3 Family history of malignant neoplasm of breast; Z86.010 Personal history of colon polyps; Z86.16 Personal history of COVID-19; Z90.49 Acquired absence of other specified parts of digestive tract; R00.0 Tachycardia, unspecified
CPT/HCPCS: 36415; 80048; 82272; 82728; 83540; 83550; 83605; 83735; 84443; 84484; 85025; 85027; 85610; 85730; 86850; 86880; 86900; 86901; 86920; 93005; 94640; 96374; 99285

== ENCOUNTER → 2022-01-01 | Outpatient (CLI) | payer BC ==
--- NOTE | 2022-01-02 14:53 | CA ---
Transthoracic Echo Report Name: Mart Walters Age: 56 Gender: M : 1965 Exam Date: 01/01/2022 15:48 Exam Location: [place] [facility] Ht (in): 72 Wt (lb): 340 Ordering Physician: Can Pollard DO ([id number]) Attending/Referring Phys: Milk Bottler Shanelle Schmitt RDCS Procedure CPT: Indications: AFLUTTER, R06.02 Shortness of breath Cardiac Hx: Technical Quality: Technically difficult study Contrast 1: Lumason Total Dose (mL): 3 Contrast 2: Total Dose (mL): MEASUREMENTS (Male / Female) Normal Values 2D ECHO LV Diastolic Diameter PLAX 4.2 cm 4.2 - 5.9 / 3.9 - 5.3 cm LV Systolic Diameter PLAX 2.6 cm IVS Diastolic Thickness 1.3 cm 0.6 - 1.0 / 0.6 - 0.9 cm LVPW Diastolic Thickness 1.3 cm 0.6 - 1.0 / 0.6 - 0.9 cm LV Relative Wall Thickness 0.6 RV Internal Dim ED PLAX 3.3 cm LA Systolic Diameter LX 3.8 cm 3.0 - 4.0 / 2.7 - 3.8 cm M-MODE Aortic Root Diameter MM 3.2 cm MV E Point Septal Separation 0.5 cm AV Cusp Separation MM 2.6 cm DOPPLER AV Peak Velocity 179.6 cm/s AV Peak Gradient 12.9 mmHg AV Mean Velocity 115.9 cm/s AV Mean Gradient 6.1 mmHg AV Velocity Time Integral 32.6 cm MV Area PHT 4.3 cm??? Mitral E Point Velocity 142.8 cm/s Mitral A Point Velocity 103.4 cm/s Mitral E to A Ratio 1.4 MV Deceleration Time 176.6 ms MV E' Velocity 6.0 cm/s Mitral E to MV E' Ratio 23.9 TR Peak Velocity 337.7 cm/s TR Peak Gradient 45.6 mmHg Right Ventricular Systolic Press 47.2 mmHg FINDINGS Left Ventricle Left ventricular ejection fraction is estimated at 55-60 %. Left ventricular cavity size normal. Mild concentric left ventricular hypertrophy. Right Ventricle Normal right ventricular size. Moderate pulmonary hypertension. Right Atrium Normal right atrial size. Left Atrium Normal left atrial size. No evidence for an atrial septal defect. Mitral Valve Structurally normal mitral valve. No mitral stenosis, regurgitation or prolapse. Aortic Valve Trileaflet aortic valve. No aortic valve stenosis or regurgitation. Tricuspid Valve Mild tricuspid regurgitation. Pulmonic Valve Pulmonic valve not well visualized. Pericardium Normal pericardium. Aorta Normal size aortic root and proximal ascending aorta. CONCLUSIONS Technically difficult study Normal LV dimension and systolic function. Mild LVH seen Normal right ventricular dimension and systolic function Normal intracardiac valves Moderate pulmonary hypertension Previewed by: Dr. Quintin Phillips MD (Electronically Signed) Final Date: 02 Jan 2022 14:52
== END | disposition home or self-care (01) ==
LOC: RADECHMAIN 15:31
PROVIDERS: ATTEND Internal Medicine
DX: I27.20 Pulmonary hypertension, unspecified (principal); I07.1 Rheumatic tricuspid insufficiency
CPT/HCPCS: 93306; Q9950

== ENCOUNTER 2024-04-27 08:13 | Emergency (ER) | payer BC ==
[2024-04-27 08:25] VITALS: TEMP 97.3
[2024-04-27] MEDS: SODIUM CHLORIDE 0.9% 1,000 ML IV STA (09:00)
[2024-04-27 09:20] LABS: Anisocytosis Slight; Basophils % (A) 0 %; Eosinophils % (A) 0 %; HCT 33.7 % (39.0-53.0); HGB 10.6 gm/dL (13.0-17.5); Hypochromasia Moderate; Lymphocytes # (A) 0.9 k/uL (1.0-4.8); Lymphocytes % (A) 14 %; MCH 29.1 pg (25.0-35.0); MCHC 31.5 g/dL (31.0-37.0); MCV 92.4 fL (80.0-100.0); Mean Platelet Volume 8.1; Monocytes # (A) 0.6 k/uL (0-1.0); Monocytes % (A) 10 %; Neutrophils # (A) 4.9 k/uL (1.3-7.7); Neutrophils % (A) 74 %; Platelet Count 301 k/uL (150-450); RBC 3.65 m/uL (4.30-5.90); RDW 19.3 % (11.5-15.5); WBC 6.6 k/uL (3.8-10.6)
--- NOTE | 2024-04-27 09:26 | ED ---
Wound/Laceration HPI - General Chief Complaint: Wound/Laceration Stated Complaint: bad stomach bleeding Time Seen by Provider: 04/27/24 08:25 Source: patient, RN notes reviewed, old records reviewed Mode of arrival: ambulatory Limitations: no limitations - History of Present Illness Initial Comments: This is a 58-year-old male to the ER today. Patient [place] for evaluation of abdominal wall bleeding exsanguination from anterior abdominal wall wound. Patient has history of significant abdominal wall hernia and currently having bleeding from this area. Feelings of lightheadedness and dizziness with severe. History of anemia -: unknown Place: home Patient Tetanus UTD: Yes Context: accidental Associated Symptoms: none Treatments Prior to Arrival: bandage - Related Data Home Medications Medication Instructions Recorded Confirmed Omeprazole [PriLOSEC] 40 mg PO DAILY 11/19/14 04/27/24 Albuterol Inhaler [Ventolin Hfa 2 puff INHALATION RT-Q6H PRN 11/27/21 04/27/24 Inhaler] Albuterol Nebulized [Ventolin 2.5 mg INHALATION RT-QID PRN 11/27/21 04/27/24 Nebulized] Cetirizine HCl 10 mg PO DAILY 11/27/21 04/27/24 Cyclobenzaprine [Flexeril] 10 mg PO DAILY PRN 11/27/21 04/27/24 Bimatoprost [Lumigan 0.01% Ophth 1 drop RIGHT EYE HS 04/27/24 04/27/24 Soln] Furosemide [Lasix] 40 mg PO DAILY 04/27/24 04/27/24 Glucosam/Tarik-Msm1/C/Milo/Bosw 1 tab PO DAILY 04/27/24 04/27/24 [Glucosamine-Chondroitin Tablet] Levothyroxine Sodium [Synthroid] 350 mcg PO DAILY 04/27/24 04/27/24 Magnesium Oxide [Mag-Ox] 400 mg PO DAILY 04/27/24 04/27/24 Multivitamins, Thera [Multivitamin 1 tab PO DAILY 04/27/24 04/27/24 (formulary)] Mupirocin 2% Oint [Bactroban 2% 1 applic TOPICAL BID 04/27/24 04/27/24 Oint] Potassium Chloride ER [K-Dur 10] 10 meq PO DAILY 04/27/24 04/27/24 lisinopriL [Zestril] 10 mg PO DAILY 04/27/24 04/27/24 Previous Rx's Medication Instructions Recorded Metoprolol Succinate (ER) [Toprol 25 mg PO DAILY #30 11/29/21 XL] Allergies Allergy/AdvReac Type Severity Reaction Status Date / Time No Known Allergies Allergy Verified 04/27/24 11:13 Review of Systems ROS Statement: Those systems with pertinent positive or pertinent negative responses have been documented in the HPI. ROS Other: All systems not noted in ROS Statement are negative. Past Medical History Past Medical History: Asthma, GERD/Reflux, Hypertension, Thyroid Disorder Additional Past Medical History / Comment(s): HERNIA UMBILICAL, hx. juvenile polyposis, covid 07/2021, anemia History of Any Multi-Drug Resistant Organisms: None Reported Past Surgical History: Bowel Resection, Hernia Repair Additional Past Surgical History / Comment(s): large intestine resection r/t polyps-secondary to juvenile polyposis, colonoscopy Past Anesthesia/Blood Transfusion Reactions: No Reported Reaction Additional Past Anesthesia/Blood Transfusion Reaction / Comment(s): no problems with prior blood transfusion Past Psychological History: No Psychological Hx Reported Smoking Status: Never smoker Past Alcohol Use History: None Reported Past Drug Use History: None Reported - Past Family History Mother Family Medical History: Cancer Additional Family Medical History / Comment(s): breast CA Sister(s) Additional Family Medical History / Comment(s): juvenile polyposis General Exam Limitations: no limitations General appearance: alert, in no apparent distress, anxious, in distress Head exam: Present: atraumatic, normocephalic, normal inspection Eye exam: Present: normal appearance, PERRL, EOMI. Absent: scleral icterus, conjunctival injection, periorbital swelling ENT exam: Present: normal exam, mucous membranes moist Neck exam: Present: normal inspection. Absent: tenderness, meningismus, lymphadenopathy Respiratory exam: Present: normal lung sounds bilaterally. Absent: respiratory distress, wheezes, rales, rhonchi, stridor Cardiovascular Exam: Present: regular rate, normal rhythm, normal heart sounds. Absent: systolic murmur, diastolic murmur, rubs, gallop, clicks GI/Abdominal exam: Present: soft, normal bowel sounds. Absent: distended, ten derness, guarding, rebound, rigid Extremities exam: Present: normal inspection, full ROM, normal capillary refill. Absent: tenderness, pedal edema, joint swelling, calf tenderness Back exam: Present: normal inspection Neurological exam: Present: alert, oriented X3, CN II-XII intact Psychiatric exam: Present: normal affect, normal mood Skin exam: Present: warm, dry, intact, normal color. Absent: rash Course Vital Signs 04/27/24 04/27/24 08:18 11:59 Temperature 97.3 F L Pulse Rate 83 69 Respiratory 20 18 Rate Blood Pressure 143/75 131/82 O2 Sat by Pulse 96 95 Oximetry - Reevaluation(s) Reevaluation #1: 04/27/24 11:47 Medical records reviewed Reevaluation #2: 04/27/24 11:47 Patient's bleeding has stopped Reevaluation #3: 04/27/24 11:47 Patient informed of results and questions answered Reevaluation #4: 05/05/24 01:02 Was pt. sent in by a medical professional or institution (, PA, EP TECHNOLOGIST, urgent care, hospital, or half-way...) When possible be specific @ -no Did you speak to anyone other than the patient for history (EMS, parent, family, police, friend...)? What history was obtained from this source @ -no Did you review nursing and triage notes (agree or disagree)? Why? @ -agree Are old charts reviewed (outside hosp., previous admission, EMS record, old EKG, old radiological studies, urgent care reports/EKG's, half-way records)? Report findings @ -yes Differential Diagnosis (chest pain, altered mental status, abdominal pain women, abdominal pain men, vaginal bleeding, weakness, fever, dyspnea, syncope, headache, dizziness, GI bleed, back pain, seizure, CVA, palpatations, mental health, musculoskeletal)? @ -prior EKG interpreted by me (3pts min.). @ -yes X-rays interpreted by me (1pt min.). @ -no CT interpreted by me (1pt min.). @ -yes negative for acute disease U/S interpreted by me (1pt. min.). @ -no What testing was considered but not performed or refused? (CT, X-rays, U/S, labs)? Why? @ -none What meds were considered but not given or refused? Why? @ -none Did you discuss the management of the patient with other professionals (professionals i.e. , PA, EP TECHNOLOGIST, lab, RT, psych nurse, social work nurse, betting agency manager, teacher, forest officer, case management specialist)? Give summary @ -no Was smoking cessation discussed for >3mins.? @ -no Was critical care preformed (if so, how long)? @ -no Were there social determinants of health that impacted care today? How? (Homelessness, low income, unemployed, alcoholism, drug addiction, transportation, low edu. Level, literacy, decrease access to med. care, retirement, rehab)? @ -none Was there de-escalation of care discussed even if they declined (Discuss DNR or withdrawal of care, Hospice)? DNR status @ -no What co-morbidities impacted this encounter? (DM, HTN, Smoking, COPD, CAD, Cancer, CVA, ARF, Chemo, Hep., AIDS, mental health diagnosis, sleep apnea, morbid obesity)? @ -none Was patient admitted / discharged? Hospital course, mention meds given and route, prescriptions, significant lab abnormalities, going to OR and other pertinent info. @ - 58 male to ER with anterior abdominal wall pressure wound with active bleeding and exsanguination on arrival to the ER. Bleeding is stopped here in the ER and patient can be discharged home Discharge Undiagnosed new problem with uncertain prognosis? @ -no Drug Therapy requiring intensive monitoring for toxicity (Heparin, Nitro, Insulin, Cardizem)? @ -no Were any procedures done? @ -no Diagnosis/symptom? @ -abdominal wall wound bleeding Acute, or Chronic, or Acute on Chronic? @ -Acute Uncomplicated (without systemic symptoms) or Complicated (systemic symptoms)? @ -Complicated Side effects of treatment? @ -no Exacerbation, Progression, or Severe Exacerbation? @ -exacerbation Poses a threat to life or bodily function? How? (Chest pain, USA, NC, pneumonia, PE, COPD, DKA, ARF, appy, cholecystitis, CVA, Diverticulitis, Homicidal, Suicidal, threat to staff... and all critical care pts) @ -yes with significant bleeding Medical Decision Making - Medical Decision Making 58 male to ER with anterior abdominal wall pressure wound with active bleeding and exsanguination on arrival to the ER. Bleeding is stopped here in the ER and patient can be discharged home - Lab Data Result diagrams: 04/27/24 08:40 04/27/24 08:40 Lab Results 04/27/24 04/27/24 04/27/24 Range/Units 08:40 08:40 08:40 WBC 6.6 (3.8-10.6) k/uL RBC 3.65 L (4.30-5.90) m/uL Hgb 10.6 L (13.0-17.5) gm/dL Hct 33.7 L (39.0-53.0) % MCV 92.4 (80.0-100.0) fL MCH 29.1 (25.0-35.0) pg MCHC 31.5 (31.0-37.0) g/dL RDW 19.3 H (11.5-15.5) % Plt Count 301 (150-450) k/uL MPV 8.1 Neutrophils % 74 % Lymphocytes % 14 % Monocytes % 10 % Eosinophils % 0 % Basophils % 0 % Neutrophils # 4.9 (1.3-7.7) k/uL Lymphocytes # 0.9 L (1.0-4.8) k/uL Monocytes # 0.6 (0-1.0) k/uL Eosinophils # 0.0 (0-0.7) k/uL Basophils # 0.0 (0-0.2) k/uL Hypochromasia Moderate Anisocytosis Slight PT 10.3 (10.0-12.5) sec INR 0.9 (<1.2) APTT 28.2 (22.0-30.0) sec Sodium 137 (137-145) mmol/L Potassium 4.6 (3.5-5.1) mmol/L Chloride 108 H (98-107) mmol/L Carbon Dioxide 23 (22-30) mmol/L Anion Gap 6 mmol/L BUN 19 (9-20) mg/dL Creatinine 1.17 (0.66-1.25) mg/dL Est GFR (CKD-EPI)AfAm 80 (>60 ml/min/1.73 sqM) Est GFR (CKD-EPI)NonAf 69 (>60 ml/min/1.73 sqM) Glucose 96 (74-99) mg/dL Lactic Ac Sepsis Rflx Plasma Lactic Acid Olaf (0.7-2.0) mmol/L Calcium 9.0 (8.4-10.2) mg/dL Total Bilirubin 0.2 (0.2-1.3) mg/dL AST 21 (17-59) U/L ALT 18 (4-49) U/L Alkaline Phosphatase 68 (38-126) U/L Total Protein 5.9 L (6.3-8.2) g/dL Albumin 3.4 L (3.5-5.0) g/dL Amylase 47 (30-110) U/L Lipase 31 (23-300) U/L Blood Type Blood Type Recheck Bld Type Recheck Status Antibody Screen Spec Expiration Date 04/27/24 04/27/24 04/27/24 Range/Units 08:40 08:40 10:23 WBC (3.8-10.6) k/uL RBC (4.30-5.90) m/uL Hgb (13.0-17.5) gm/dL Hct (39.0-53.0) % MCV (80.0-100.0) fL MCH (25.0-35.0) pg MCHC (31.0-37.0) g/dL RDW (11.5-15.5) % Plt Count (150-450) k/uL MPV Neutrophils % % Lymphocytes % % Monocytes % % Eosinophils % % Basophils % % Neutrophils # (1.3-7.7) k/uL Lymphocytes # (1.0-4.8) k/uL Monocytes # (0-1.0) k/uL Eosinophils # (0-0.7) k/uL Basophils # (0-0.2) k/uL Hypochromasia Anisocytosis PT (10.0-12.5) sec INR (<1.2) APTT (22.0-30.0) sec Sodium (137-145) mmol/L Potassium (3.5-5.1) mmol/L Chloride (98-107) mmol/L Carbon Dioxide (22-30) mmol/L Anion Gap mmol/L BUN (9-20) mg/dL Creatinine (0.66-1.25) mg/dL Est GFR (CKD-EPI)AfAm (>60 ml/min/1.73 sqM) Est GFR (CKD-EPI)NonAf (>60 ml/min/1.73 sqM) Glucose (74-99) mg/dL Lactic Ac Sepsis Rflx Y Plasma Lactic Acid Olaf 2.9 H* (0.7-2.0) mmol/L Calcium (8.4-10.2) mg/dL Total Bilirubin (0.2-1.3) mg/dL AST (17-59) U/L ALT (4-49) U/L Alkaline Phosphatase (38-126) U/L Total Protein (6.3-8.2) g/dL Albumin (3.5-5.0) g/dL Amylase (30-110) U/L Lipase (23-300) U/L Blood Type A Positive Blood Type Recheck A Pos Bld Type Recheck Status No Antibody Screen NEGATIVE Spec Expiration Date 04/30/20242339 - Radiology Data Radiology results: report reviewed (CT abdomen pelvis is negative for acute d isease), image reviewed Disposition Clinical Impression: Open wound anterior abdominal wall Disposition: HOME SELF-CARE Condition: Good Instructions (If sedation given, give patient instructions): Acute Wound Care (ED), Chronic Wound Care (ED), Pressure Injury (ED) Is patient prescribed a controlled substance at d/c from ED?: No Referrals: Amy Sandoval DO [Primary Care Provider] - 1-2 days Time of Disposition: 11:45
[2024-04-27 09:33] LABS: INR 0.9 (<1.2); Partial Thromboplastin Time 28.2 sec (22.0-30.0); Prothrombin Time 10.3 sec (10.0-12.5)
[2024-04-27 09:39] LABS: ALT 18 U/L (4-49); AST 21 U/L (17-59); African American GFR (CKD) 80 (>60 ml/min/1.73 sqM); Albumin 3.4 g/dL (3.5-5.0); Alkaline Phosphatase 68 U/L (38-126); Amylase 47 U/L (30-110); Anion Gap 6 mmol/L; Blood Urea Nitrogen 19 mg/dL (9-20); Carbon Dioxide 23 mmol/L (22-30); Chloride 108 mmol/L (98-107); Glucose 96 mg/dL (74-99); Lipase 31 U/L (23-300); Non-African American GFR(CKD) 69 (>60 ml/min/1.73 sqM); Potassium 4.6 mmol/L (3.5-5.1); Sodium 137 mmol/L (137-145); Total Bilirubin 0.2 mg/dL (0.2-1.3); Total Protein 5.9 g/dL (6.3-8.2)
--- NOTE | 2024-04-27 10:18 | CT ---
EXAMINATION TYPE: CT abdomen pelvis w con DATE OF EXAM: 04/27/2024 COMPARISON: 09/05/2012 HISTORY: abdominal wound that wont stop bleeding hx of bowel resecction CT DLP: 3046 mGycm Automated exposure control for dose reduction was used. CONTRAST: CT scan of the abdomen pelvis is performed with IV Contrast, patient injected with 100ml mL of Isovue 300. FINDINGS- LUNG BASES- heart is enlarged. Large hiatal hernia with virtually entire stomach intrathoracic. Basi lar scarring or atelectasis. LIVER/GB- there is gallbladder wall thickening with suggestion of possible gallbladder sludge or st ones recommend correlation with ultrasound. PANCREAS- atrophic change with numerous calcifications which likely sequela of pancreatitis. SPLEEN- No gross abnormality is seen. ADRENALS- No gross abnormality is seen. KIDNEYS/BLADDER- no hydronephrosis nephrolithiasis or renal mass. BOWEL- previous bowel surgery suggested. A large portion of bowel contained within the large anterio r abdominal wall hernia. LYMPH NODES- No greater than 1cm abdominal or pelvic lymph nodes are appreciated. OSSEOUS STRUCTURES- multilevel hypertrophic and degenerative changes of the spine. Bilateral hip art hropathy. OTHER- large anterior abdominal wall hernia containing a significant portion of the intra-abdominal bowel loops. No obstruction. Nonspecific cystic structure appears to represent the bladder in the low er anterior abdominal wall extending to the mouth of the hernia sac . Mild skin thickening along the anterior abdominal wall middle mild induration. IMPRESSION- 1. Large anterior abdominal wall hernia. No evidence of bowel obstruction. Skin thickening along the anterior and left lateral portions of the lower hernia sac\abdominal wall with very minimal induratio n of fat. Correlate for cellulitis or skin wound. 2. Gall bladder wall thickening with cholelithiasis considering quadrant ultrasound. 3. Sequela of chronic pancreatitis. 4. Hepatic steatosis.
[2024-04-27 12:00] VITALS: BP 131/82; PULSE 69; RESP 18
== END 2024-04-27 13:30 | disposition home or self-care (01) ==
LOC: EC 08:13
CPT/HCPCS: 36415; 74177; 80053; 82150; 83605; 83690; 85025; 85610; 85730; 86850; 86900; 86901; 96360; 99284

== ENCOUNTER 2024-08-28 10:33 | Day surgery (SDC) | payer BC ==
[2024-08-24 15:47] VITALS: BMI 43.2
[~2024-08-28 10:33] MED LIST changes: +LIDOCAINE 1% (10MG/ML) FOR IV START INTRADERMA PRN; -SIMETHICONE 40 MG/0.6 ML DROPS 2,000 MG/30 ML BOTTLE PO ONE
[2024-08-28 12:20] VITALS: TEMP 96.8
[2024-08-28] MEDS: LACTATED RINGERS 1,000 ML IV SCH (12:20)
[2024-08-28] MEDS: IV FLUID CONTINUATION 1,000 ML IV ONE ×2 (12:20→12:40)
[2024-08-28] MEDS ORDERED: PROPOFOL 10 MG/ML 20 ML VIAL IV ONE (12:43)
[2024-08-28] MEDS ORDERED: LIDOCAINE 1% INJ 10MG/ML (20 ML MDV) ONE (12:43)
--- NOTE | 2024-08-28 12:59 | P.PCN ---
Date of Procedure: 08/28/24 Procedure(s) Performed: BRIEF HISTORY: Patient is a 51-year-old, pleasant, white male with history of juvenile familial adenomatous adenomatous polyposis syndrome diagnosed in 2009. He status post subtotal colectomy. Last EGD and colonoscopy was done in February 2024 and was noted to have multiple gastric polyps and biopsies of the polyps revealed hyperplastic polyps with low-grade dysplasia. He is scheduled for a repeat upper endoscopy in 6 months.. PROCEDURE PERFORMED: Esophagogastroduodenoscopy with biopsy. PREOPERATIVE DIAGNOSIS: History of juvenile familial adenomatous polyposis syndrome and multiple gastric polyps. IV sedation per anesthesia. PROCEDURE: After informed consent was obtained, the patient was brought into the endoscopy unit. IV sedation was administered by Anesthesia under continuous monitoring. Initially the Olympus GIF-140 video endoscope was inserted into the mouth. Esophagus intubated without any difficulty. It was gradually advanced into the stomach and duodenum and carefully examined. The bulb and the second part of the duodenum appeared normal. The scope at this time was withdrawn to the stomach, adequately insufflated with air, and upon careful examination, mucosa of the antrum, 4 polyps measuring between 1 to 2 cm in size which were biopsied. In the body of the stomach there were several large polyps measuring between 1 cm to 4 cm in size almost like a carpet like appearance involving the entire body and the fundus of the stomach and multiple biopsies were done from this areas. There were a few polyps noted in the fundus of the stomach also. The scope was then withdrawn into the esophagus. The GE junction was located at 39 cm from the incisors. The esophagus appeared normal. There were no erosions or ulcerations seen and the patient tolerated the procedure well. IMPRESSION: 1. Multiple large gastric polyps in the antrum as well as body of the stomach measuring between 1 cm to 4 cm in size involving the entire gastric body as well as fundus of the stomach status post multiple biopsies. 2. Ampullary orifice appeared normal. RECOMMENDATIONS: The findings of this examination were discussed with the patient as well as his family. He will be seen in the office in 2 weeks. Based on the biopsy results we will decide on repeat upper endoscopy in 6 months versus referral to [facility] for further management..
[2024-08-28 13:07] VITALS: RESP 16
[2024-08-28 13:17] VITALS: BP 121/73; PULSE 74
== END 2024-08-28 13:44 | disposition home or self-care (01) ==
LOC: ORWHC2ENDO 10:33
PROVIDERS: ATTEND Internal Medicine Gastroenterology
DX: K31.7 Polyp of stomach and duodenum (principal); K21.9 Gastro-esophageal reflux disease without esophagitis; I10 Essential (primary) hypertension; E07.9 Disorder of thyroid, unspecified; D64.9 Anemia, unspecified; J45.909 Unspecified asthma, uncomplicated; E66.01 Morbid (severe) obesity due to excess calories; Z79.890 Hormone replacement therapy; Z79.899 Other long term (current) drug therapy; Z87.19 Personal history of other diseases of the digestive system; Z86.0101 Personal history of adenomatous and serrated colon polyps; Z90.49 Acquired absence of other specified parts of digestive tract
CPT/HCPCS: 88305; 43239; J2003; J2704

== ENCOUNTER 2025-03-05 05:32 | Day surgery (SDC) | payer BC ==
[2025-03-05 06:17] VITALS: TEMP 98
[2025-03-05] MEDS: IV FLUID CONTINUATION 1,000 ML IV ONE (06:25)
[2025-03-05] MEDS: LACTATED RINGERS 1,000 ML IV SCH (06:26)
[2025-03-05] MEDS ORDERED: LIDOCAINE 2% (PF) 20 MG/ML 5 ML VIAL ONE (07:00)
[2025-03-05] MEDS ORDERED: PROPOFOL 10 MG/ML 20 ML VIAL IV ONE (07:00)
[2025-03-05] MEDS ORDERED: PHENYLEPHRINE-0.9% NACL SYG 1,000 MCG/10 ML SYRINGE ONE (07:00)
[2025-03-05] MEDS ORDERED: fentaNYL (PF) 50 MCG/ML 2 ML AMP ONE (07:00)
--- NOTE | 2025-03-05 07:37 | P.PCN ---
Date of Procedure: 03/05/25 Procedure(s) Performed: Brief history: Patient is a pleasant 59-year-old white male with history of juvenile familial adenomatous polyposis syndrome diagnosed in 2009. He subsequently underwent subtotal colectomy. Noted to have multiple gastric polyps for which he is having upper endoscopy on a yearly basis for surveillance. Scheduled for an elective upper endoscopy as well as colonoscopy as a part of evaluation of Procedure performed: Esophagogastroduodenoscopy with multiple biopsies Colonoscopy with snare polypectomy Preoperative diagnosis: History of juvenile familial adenomatous polyposis syndrome with multiple gastric polyps, status post subtotal l colectomy in 2009 Anesthesia: MAC Procedure: After informed consent was obtained from the patient was brought into the endoscopy unit and IV sedation was administered by anesthesia under continuous monitoring. Initially upper endoscopy was done. The Olympus GF 160 video endoscope was inserted inserted into the mouth and esophagus intubated without any difficulty and was gradually advanced into the stomach and duodenum and carefully examined. The bulb and second part of the duodenum appeared normal. The scope was then withdrawn into the stomach adequately insufflated with air and upon careful examination the antrum and multiple polyps measured between 5 mm to 2 cm in size which were biopsied. In the gastric body there were multiple large polyps involving the entire gastric body and despite multiple attempts I was not able to adequately insufflate the stomach. At this time multiple biopsies were done from the gastric polyps. In the cardia of the stomach there was a 3 cm thick pedunculated polyp and biopsies were done from this area. There were several small polyps noted in the cardia and the fundus also. The scope was then withdrawn into the esophagus. The GE junction was located at 36 cm to the incisors. It appeared regular with no erythema erosions or ulcerations. Rest of the esophagus appeared normal. Patient tolerated the procedure well. At this time the patient continued to remain sedation. Initial digital rectal examination was normal. Olympus CF 160 video colonoscope was then inserted into the rectum and gradually advanced to the ileocolic anastomosis which was located at the centimeters from the anal verge. The scope was advanced up to 50 cm of the distal ileum and the multiple small distal ileal polyps identified measuring between 3 to 5 mm in size was. Removed by snare polypectomy. Anastomosis appeared normal. The sigmoid colon and rectum appeared normal. Retroflexion was performed in the rectum and no lesions were noted. Patient tolerated the procedure well. Impression: 1. Upper endoscopy revealed multiple large gastric polyps involving the entire gastric body measuring between 3 to 4 cm in size status post multiple biopsies, polyps in the antrum as well as in the cardia of the stomach status post multiple biopsies 2. Colonoscopy revealed ileocolic anastomosis at 50 cm from the anal verge with small polyps in the distal ileum measuring between 3 to 4 mm in size status post snare polypectomy. Recommendations: Findings of this examination were discussed with the patient as well as his family. He was advised to follow-up with the biopsy results. Follow-up in the office in 2 weeks. Based on the biopsy results we will plan on repeat upper endoscopy and colonoscopy in 1 year.
[2025-03-05 07:44] VITALS: RESP 14
[2025-03-05 07:56] VITALS: BP 108/59; PULSE 74
== END 2025-03-05 08:26 | disposition home or self-care (01) ==
LOC: ORWHC2ENDO 05:32
PROVIDERS: ATTEND Internal Medicine Gastroenterology
DX: Z12.11 Encounter for screening for malignant neoplasm of colon (principal); K63.5 Polyp of colon; Z13.810 Encounter for screening for upper gastrointestinal disorder; K31.7 Polyp of stomach and duodenum; K21.9 Gastro-esophageal reflux disease without esophagitis; I10 Essential (primary) hypertension; E07.9 Disorder of thyroid, unspecified; J45.909 Unspecified asthma, uncomplicated; E66.01 Morbid (severe) obesity due to excess calories; Z79.890 Hormone replacement therapy; Z79.899 Other long term (current) drug therapy; Z87.19 Personal history of other diseases of the digestive system; Z86.0101 Personal history of adenomatous and serrated colon polyps; Z90.49 Acquired absence of other specified parts of digestive tract; Z98.0 Intestinal bypass and anastomosis status
CPT/HCPCS: 88305; 88342; 45385; 43239; J3010; J2704; J2003; J2371